=== PATIENT | male | born 1945 | race Two or more races ===

== ENCOUNTER 2018-08-29 07:23 | Inpatient (IN) | payer MEDICARE, OTHER ==
--- NOTE | 2018-08-29 07:36 | ED ---
Neurological HPI - HPI Summary HPI Summary: Pt is a 73 y/o male brought in by EMS who presents to the ED c/o left-sided weakness. As per EMS, his last known well was at 4:00 this morning. At 7:00 he was found with confusion and left-sided weakness, and pt was unable to stand up. Pt denies any headache. He lives with his grandson, who notes that he has been sleeping for the past few days and has not spoken much. Grandson also notes that pt fell both at 4:00 and 5:30 this morning. Pt is aphasic and is only able to answer simple yes or no questions. PMHx CAD, HTN, HLD. Dionne Bhakta was called at 6:55 as per EMS, but was then cancelled at 7:25. Pt is a level 5 caveat due to his AMS. - History of Current Complaint Stated Complaint: DIONNE JAEGER Hx Obtained From: Patient, EMS Hx From Patient Unobtainable Due To: Altered Mental Status Onset/Duration: Sudden Onset - 7:00 this morning, Started hours ago - Possibly several days ago., Still Present Neurological Deficit Location: Generalized, LUE, LLE Character: Weak, Confusion Aggravating: Nothing Alleviating: Nothing Associated Signs and Symptoms: Negative: Headache - Allergy/Home Medications Allergies/Adverse Reactions: Allergies Allergy/AdvReac Type Severity Reaction Status Date / Time No Known Allergies Allergy Verified 08/29/18 07:34 Home Medications: Home Medications Aspirin EC TAB* [Ecotrin EC Low Dose 81 MG*] 81 mg PO DAILY 08/29/18 [History Confirmed 08/29/18] Atenolol TAB* [Tenormin TAB* 50 MG] 100 mg PO DAILY 08/29/18 [History Confirmed 08/29/18] Dapagliflozin 10 mg Tab (Nf) [Farxiga] 10 mg PO DAILY 08/29/18 [History Confirmed 08/29/18] Ezetimibe TAB* [Zetia TAB*] 10 mg PO DAILY 08/29/18 [History Confirmed 08/29/18] Levothyroxine TAB* [Synthroid TAB*] 75 mcg PO DAILY 08/29/18 [History Confirmed 08/29/18] Lisinopril TAB* [Prinivil TAB*] 10 mg PO DAILY 08/29/18 [History Confirmed 08/29] Olmesartan/Amlodipin/Hcthiazid [Olmesartan Medoxomil/Amlo 40-10-25 mg] 1 tab PO DAILY 08/29/18 [History Confirmed 08/29/18] Simvastatin (NF) [Zocor (NF)] 80 mg PO BEDTIME 08/29/18 [History Confirmed 08/29] SitaGLIPtin (NF) [Januvia (NF)] 100 mg PO DAILY 08/29/18 [History Confirmed ] glyBURIDE TAB* [Diabeta TAB*] 5 mg PO QAM 08/29/18 [History Confirmed 08/29/18] metFORMIN* [Glucophage 500 MG TAB *] 1,000 mg PO BID 08/29/18 [History Confirmed 08/29/18] PMH/Surg Hx/FS Hx/Imm Hx Cardiovascular History: Reports: Hx Coronary Artery Disease, Hx Hypercholesterolemia, Hx Hypertension - Surgical History Surgery Procedure, Year, and Place: CABG - Family History Known Family History: Positive: Unknown - level 5 caveat - AMS - Social History Alcohol Use: None Hx Substance Use: No Substance Use Type: Reports: None Hx Tobacco Use: No Smoking Status (MU): Never Smoked Tobacco Review of Systems Neurological: Other - confusion Positive: Weakness - left-sided. Negative: Headache All Other Systems Reviewed And Are Negative: No Physical Exam - Summary Physical Exam Summary: Appearance: The patient is well-nourished in no acute distress and in no acute pain. Skin: The skin is warm and dry and skin color reflects adequate perfusion. HEENT: The head is normocephalic and atraumatic. The pupils are equal and reactive. The conjunctivae are clear and without drainage. Nares are patent and without drainage. Mouth reveals moist mucous membranes and the throat is without erythema and exudate. The external ears are intact. The ear canals are patent and without drainage. The tympanic membranes are intact. Neck: The neck is supple with full range of motion and non-tender. There are no carotid bruits. There is no neck vein distension. Respiratory: Chest is non-tender. Lungs are clear to auscultation and breath sounds are symmetrical and equal. Cardiovascular: Heart is regular rate and rhythm. There is no murmur or rub auscultated. There is no peripheral edema and pulses are symmetrical and equal. Abdomen: The abdomen is soft and non-tender. There are normal bowel sounds heard in all four quadrants and there is no organomegaly palpated. Musculoskeletal: There is no back tenderness noted. Extremities are non-tender with full range of motion. There is good capillary refill. There is no peripheral edema or calf tenderness elicited. Neurological: Patient is alert and oriented to time only. The patient has symmetrical motor strength in all four extremities. Cranial nerves are grossly intact. Deep tendon reflexes are symmetrical and equal in all four extremities. Aphasic but can answer yes and no questions. The patient is cooperative to the exam. Psychiatric: The patient has an appropriate affect and does not exhibit any anxiety or depression. Triage Information Reviewed: Yes Vital Signs Reviewed: Yes Completion Of Physical Exam Limited Due To: Level 5 - AMS - Grover Coma Scale Best Eye Response: 4 - Spontaneous Best Motor Response: 6 - Obeys Commands Best Verbal Response: 5 - Oriented Coma Scale Total: 15 Diagnostics - Laboratory Result Diagrams: 08/29/18 07:34 08/29/18 07:34 Lab Statement: Any lab studies that have been ordered have been reviewed, and results considered in the medical decision making process. 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 CONSIDER FURTHER EVALUATION WITH CT ANGIOGRAPHY OF THE CHEST. ED physician reviewed radiology report. - CT Brain CT CT Interpretation Completed By: Radiologist Summary of CT Findings: 1. Highly limited CT examination due to oblique positioning and motion artifact. 2. There is no CT apparent acute intracranial abnormality within the limitations of this low-quality CT of the brain. 3. Paranasal sinus mucosal disease. ED physician reviewed radiology report. 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-Paretic Hand: Both Correctly Best Gaze (Only Horizontal Eye Movement): Normal Visual Field Testing: No Visual Loss Facial Paresis-Pt to Smile & Close Eyes or Grimace Symmetry: Normal/Symmetrical Motor Function - Right Arm: No Drift-Holds 10 Seconds Motor Function - Left Arm: No Drift-Holds 10 Seconds Motor Function - Right Leg: No Drift-Holds 10 Seconds Motor Function - Left Leg: No Drift-Holds 10 Seconds Limb Ataxia-Must be out of Proportion to Weakness Present: Absent Sensory (Use Pinprick to Test Arms/Legs/Trunk/Face): Normal Best Language (Describe Picture, Name Items): Severe Aphasia Dysarthria (Read Several Words): Slurs Some Words Extinction and Inattention: No Abnormality Total Score: 3 Course/Dx - Course Course Of Treatment: Mr. Harry was brought in by EMS. They were called by his grandson who is 14 years old. This is a bit hazy but apparently has been sleeping a lot and possibly slurring his speech for the last couple of days and fell in the wee hours this morning. Ambulance found him to be confused and poorly responsive to verbal requests. He felt that he had a left-sided weakness. Dionne jaeger was called in the field and the patient was evaluated in the hallway on presentation. He was noted to have an expressive aphasia and possibly a partial receptive aphasia. He would follow some commands but not others and was easily distracted. I could not find any focal neurologic deficit. Because it appears as though it's been a couple of days since anyone interacted with him the dionne jaeger was canceled but he was sent for an immediate CT scan and labs were drawn. He will great deal of difficulty holding still for the CT scan and was given Ativan which only helped marginally. Dr. Awan was consult and came to the department to evaluate the patient. He requested MR scans. The patient needed to have conscious sedation for that so anesthesiology was contacted as was the hospitalist service for admission. - Diagnoses Provider Diagnoses: CVA (cerebral vascular accident) - Physician Notifications Discussed Care Of Patient With: Adam Awan Time Discussed With Above Provider: 09:27 Instructed by Provider To: Other - 1740 - Dr. Awan will come to the ED for a consult. 1040 - Dr. Awan has evaluated the patient, after discussing the patient's case with Dr. Bradley, the patient will be admitted, MRI and MRA to be done. 1105 - Patients case was discussed with Dr. Calderon, Dr. Calderon accepts for admission. - Critical Care Time Critical Care Time: 30-74 min - 30 minutes Discharge - Sign-Out/Discharge Documenting (check all that apply): Patient Departure - admit - Discharge Plan Condition: Good Disposition: ADMITTED TO [facility] - Billing Disposition and Condition Condition: GOOD Disposition: Admitted to [facility] - Attestation Statements Document Initiated by Mikeibe: Yes Documenting Scribe: Yana Allison Provider For Whom Scribe is Documenting (Include Credential): Antwon Bradley MD Scribe Attestation: Yana Mcdaniel, scribed for Antwon Bradley MD on 08/29/18 at 1711. Scribe Documentation Reviewed: Yes Provider Attestation: The documentation as recorded by the scribe, Yana Allison accurately reflects the service I personally performed and the decisions made by me, Antwon Bradley MD Status of Scribe Document: Viewed
[2018-08-29 07:48] LABS: ABS Basophils 0 10^3/ul (0-0.2); ABS Eosinophils 0 10^3/ul (0-0.6); ABS Lymphocytes 1.3 10^3/ul (1.0-4.8); ABS Monocytes 0.9 10^3/ul (0-0.8); ABS Neutrophils 10.2 10^3/ul (1.5-7.7); ABS Nucleated RBC 0 10^3/ul; Eosinophil % 0 %; Hematocrit 50 % (42-52); Hemoglobin 16.9 g/dl (14.0-18.0); Lymphocyte % 10.2 %; Mean Corpuscular HGB Conc 34 g/dl (31-36); Mean Corpuscular Hemoglobin 30 pg (27-31); Mean Corpuscular Volume 88 fL (80-94); Mean Platelet Volume 8.4 fL (7.4-10.4); Nucleated Red Blood Cells % 0.1; Platelet Count 231 10^3/ul (150-450); Red Blood Count 5.72 10^6/ul (4.00-5.40); Red Cell Distribution Width 14 % (10.5-15); White Blood Count 12.4 10^3/ul (3.5-10.8)
[2018-08-29 07:55] LABS: INR 1.11 (0.77-1.02)
[2018-08-29 08:02] LABS: ALT 20 U/L (7-52); AST 24 U/L (13-39); Albumin 4.5 g/dL (3.2-5.2); Albumin/Globulin Ratio 1.3 (1-3); Alkaline Phosphatase 87 U/L (34-104); Anion Gap 13 mmol/L (2-11); BUN/Creatinine Ratio 28.9 (8-20); Blood Urea Nitrogen 28 mg/dL (6-24); CO2 Carbon Dioxide 23 mmol/L (22-32); Calcium 10.1 mg/dL (8.6-10.3); Chloride 100 mmol/L (101-111); Creatine Kinase 428 U/L (10-223); EGFR African American 91.8 (>60); EGFR Non-African American 75.9 (>60); Globulin 3.5 g/dL (2-4); Glucose 295 mg/dL (70-100); Magnesium 2.1 mg/dL (1.9-2.7); Sodium 136 mmol/L (135-145)
[2018-08-29 08:03] LABS: Troponin I 0.02 ng/mL (<0.04)
[2018-08-29] MEDS ORDERED: LORazepam INJ* 2 MG/ML 1 ML VIAL IV ONE ×3 (08:21→11:38)
[2018-08-29] MEDS ORDERED: NS 0.9% 1000 ML** 1,000 ML IV ONE (08:21)
[2018-08-29 08:34] LABS: TSH (Thyroid Stimulating Horm) 2.38 mcIU/mL (0.34-5.60)
[2018-08-29 10:09] LABS: Acetaminophen < 15 mcg/mL; Alcohol < 10 mg/dL (<10)
[2018-08-29] MEDS ORDERED: Albuterol/Ipratropium NEB.SOL* Albuterol 2.5 MG/Ipratropium 0.5 MG 3 ML INH ONE (12:27)
--- NOTE | 2018-08-29 12:39 | CONS ---
CONSULTATION REPORT: DATE OF CONSULT: 08/29/18 PATIENT OF: Dr. Bradley and Jackie Salguero NP. HISTORY OF PRESENT ILLNESS: This is a 73-year-old man who is unable to provide any history due to aphasia. Apparently, his symptoms began relatively acutely in the past 2 to 3 days. He lives with his 14-year-old grandson, who noted to the EMS that the patient had been sleeping for the past few days' time and has not spoken much. This morning, he fell couple of times and had some confusion. It is unclear whether his grandson noticed the left-sided weakness or whether it was the EMS, but he was brought in by ambulance earlier this morning. He is unable to give history himself, but he has history of hypertension, hypercholesterolemia, obesity, diabetes, and coronary artery disease. He is status post a CABG. He never smoked tobacco. He has no history of substance abuse, but it is unclear how that was obtained. MEDICATIONS: Include: 1. Metformin possibly 500 mg twice a day. 2. Simvastatin 10 mg daily. 3. Tribenzor 1 tablet daily. 4. Synthroid 100 mcg daily. 5. Zetia 10 mg daily. 6. Farxiga 5 mg daily. 7. Atenolol 25 mg daily. ALLERGIES: He has no known allergies, but that will need to be confirmed. REVIEW OF SYSTEMS: Unobtainable. There is no recent history in the chart. There is a history from February 2016, but just saying that he is getting colonoscopy. PHYSICAL EXAM: Vital Signs: Blood pressure 144/101, oxygen sat 93, pulse 101, respirations 27, temperature 98.1. Neurologic: He was alert. He said his name. He could say some 2-word phrases, but could not answer questions in a meaningful way. He could not name objects. When I asked him to touch his nose , he raised his hands and was unable to cooperate with the exam. He was not agitated. On cranial nerves, there is no clear visual field cut to threat, but the exam is difficult. He did not cooperate with exam at all, but had full extraocular movements when he regarded my face. There is a red reflex present in both eyes. Pupils were equal, round, and reactive to light. He had no clear facial asymmetry, but I could not fully assess this. His voice was not slurred. He moved all extremities with power at least 4+/5, but he did not cooperate with things such as pronator drift or formal strength testing. Reflexes were 1 and equal. Toes were equivocal to downgoing. Chest: Clear. Cardiovascular: Regular rate and rhythm. Abdomen: Soft with positive bowel sounds. DIAGNOSTIC STUDIES/LAB DATA: He had a CT scan which was limited because of movement artifact. He had a chest x-ray with a tortuous aorta, but no dilatation. He had normal sinus rhythm with right bundle-branch block. His labs include white count 12.4, CBC otherwise normal. INR 1.1. Chemistry: He had a BUN of 28, creatinine 0.97, lactic acid 2.2, glucose 295, CPK of 428. TSH 4.28. Toxicology negative for alcohol or Tylenol. IMPRESSION: Mr. Harry appears alert and interactive, but my sense is that he has a dense aphasia, but has no clear-cut motor deficits or visual field cut that I can detect, although this may be limited by exam. The differential would be most likely a subacute stroke beginning 3 days ago when he took to his bed and did not speak much, according to the 14-year-old grandson. It is possible that something like herpes encephalitis could be going on, but I think this is much less likely. There is no fever and the symptoms have been present for 3 days' time. We are going to sedate him and get an MRI with and without contrast as well as an MRA of the head and neck. The MRA of the neck will be with and without contrast. We will see what these findings show. He could also be having subclinical seizures complicating this and we will be checking an EEG. We will be doing this in the near future and workup will proceed from the findings on these studies. He will clearly need to be admitted. Thank you for sharing his case. [id number]/[facility] #: [id number] LILO
[2018-08-29] MEDS ORDERED: Propofol* 1,000 MG/100 ML BTL ONE (12:48)
[2018-08-29] MEDS ORDERED: Succinylcholine* 20 MG/ML 10 ML VIAL ONE (12:48)
[2018-08-29] MEDS ORDERED: KETAMINE HCL* 50 MG/ML 10 ML VIAL ONE ×2 (12:49→16:55)
[2018-08-29] MEDS ORDERED: Midazolam* 1 MG/ML 2 ML VIAL (2 MG) ONE ×2 (13:14→13:16)
[2018-08-29] MEDS ORDERED: Gadobenate* (CONTRAST) 529 MG/ML 10 ML SDV IV ONE (15:16)
[2018-08-29] MEDS ORDERED: Naloxone* 0.4 MG/ML 1 ML VIAL IV PRN (15:33)
[2018-08-29 16:19] LABS: Urine Appearance Cloudy; Urine Bacteria Absent (Absent); Urine Bilirubin Negative (Negative); Urine Blood 1+ (Negative); Urine Color Yellow; Urine Glucose 3+(>=500 mg/dL) (Negative); Urine Ketones 1+ (Negative); Urine Nitrite Negative (Negative); Urine Protein 2+(100 mg/dL) (Negative); Urine Red Blood Cell 1+(3-5/hpf) (Absent); Urine Specific Gravity 1.038 (1.010-1.030); Urine Urobilinogen Negative (Negative); Urine White Blood Cell Absent (Absent)
[2018-08-29] MEDS ORDERED: NS 0.9% 1000 ML** 1,000 ML IV SCH (16:30)
[2018-08-29] MEDS ORDERED: Dextrose 50% Syringe 50 ML* 25 GM/50 ML SYRINGE IV PUSH PRN (16:30)
[2018-08-29 16:35] LABS: Barbiturates Urine Screen None Detected (None Detect); Benzodiazepine Urine Screen Presumptive Positive (None Detect); Urine Cannabinoids Screen None Detected (None Detect)
[2018-08-29] MEDS ORDERED: fentaNYL* 50 MCG/ML 2 ML VIAL (100 MCG VIAL) ONE (16:55)
[2018-08-29] MEDS ORDERED: Midazolam* 1 MG/ML 5 ML VIAL (5 MG) ONE (16:56)
[2018-08-29 17:49] LABS: Body Fluid Source Cerebral Spinal
[2018-08-29 18:02] LABS: CSF Glucose 150 mg/dL (40-70)
[2018-08-29 18:17] LABS: Body Fluid Band 1 %; Body Fluid Mono 35 %
[2018-08-29] MEDS ORDERED: QUEtiapine TAB* 25 MG PO PRN (18:53)
[2018-08-29] MEDS ORDERED: LORazepam INJ* 2 MG/ML 1 ML VIAL IV PUSH PRN (18:53)
--- NOTE | 2018-08-29 19:29 | HP ---
CC: Dr. Anthony; Dr. Awan * HISTORY AND PHYSICAL: DATE OF ADMISSION: 08/29/18 PROVIDER: Reena Velez NP PRIMARY CARE PROVIDER: Natalie Anthony MD ATTENDING PHYSICIAN WHILE IN THE HOSPITAL: Dr. Ernestina Calderon * (dictated by Reena Velez NP). CHIEF COMPLAINT: Altered mental status. HISTORY OF PRESENT ILLNESS: This was obtained from his EMS report and ER report as the patient has significant altered mental status. According to the ER report, Mr. Harry is a 73-year-old male patient who was brought in by EMS and the initial complaint was left-sided weakness. Per EMS, the patient was last normal at 4 this morning. At 7, he was found with confusion, left- sided weakness, unable to stand up. 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 Grandson reports that the patient had been sleeping more over the past few days and has not spoken much. Grandson noted that the patient fell at 4 a.m., and at 5:30 this morning, on arrival to the emergency room, the patient was aphasic, only able to answer yes or no questions. Mane freeman was called and was canceled at 7:25. The patient carries a past medical history significant according to his medical records from his primary care provider of hypertension, hypothyroid, morbid obesity, type 2 diabetes, high cholesterol, atherosclerosis of the coronary arteries, bypass graft . The patient was seen by Neurology in the emergency room. MRI and MRAs were ordered as well as CT of the brain, which did not show any acute stroke or hemorrhage. Due to his profound aphasia and altered mental status, we were asked to see and evaluate him for admission. PAST MEDICAL HISTORY: Significant for: obtained from PCP medical records 1. Hypertension. 2. CAD. 3. Diabetes, type 2. 4. High cholesterol. PAST SURGICAL HISTORY: obtained from PCP medical records 1. CABG x4 vessels in 2002. 2. Cardiac catheterization with 2 stent placements in 2008. This was obtained from PCP medical records. HOME MEDICATIONS: 1. Lisinopril 10 mg p.o. daily. 2. Glyburide 5 mg p.o. daily. 3. Synthroid 75 mcg p.o. daily. 4. Farxiga 10 mg p.o. daily. 5. Zetia 10 mg p.o. daily. 6. Simvastatin 80 mg p.o. daily. 7. Tribenzor 40/10/25 p.o. daily. 8. Atenolol 100 mg p.o. daily. 9. Aspirin 81 mg p.o. daily. 10. Janumet 11/999 mg daily. 11. Furosemide 20 mg daily. ALLERGIES: According to his medical records from his primary care office from 08/11/18, no known drug allergies. FAMILY HISTORY: Unknown. SOCIAL HISTORY: According to his old records, the patient was a prior smoker. He quit in July 1995. Prior to that, he smoked 2 packs a day for approximately 30 years. 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 He lives with his 14 y.o grandson. Next of kin is his son, Aroldo. Code status is a full code at this point. REVIEW OF SYSTEMS: Unobtainable as the patient is aphasic and unable to follow commands or make needs known. He does state yes and no, but answers are irrelevant to questions. PHYSICAL EXAMINATION GENERAL: At this time, Mr. Harry is a 73-year-old male. He is aphasic. He opens his eyes to verbal stimulation. He is lying on the stretcher in the emergency room. He restless on the stretcher. VITAL SIGNS: Blood pressure 153/99, heart rate 92, respirations 22, O2 saturation 97%, temperature was 98.5. HEENT: Head is atraumatic, normocephalic. Eyes: EOMs are intact. Sclerae anicteric and not pale. Oral mucosa appeared to be moist. There is no oropharyngeal erythema. NECK: Supple. C-spine was palpated with no grimacing noted with palpation. LUNGS: Clear to auscultation bilaterally. No wheezes, rales, or rhonchi. CARDIAC: S1, S2. Regular rate and rhythm. No murmurs, rubs, or gallops. ABDOMEN: Obese, soft, appears to be nontender, there is no grimacing with palpation to the abdomen. Bowel sounds are present x4. EXTREMITIES: He is able to move all 4 extremities. NEUROLOGIC: He opens eyes to verbal. He is unable to follow commands. He is aphasic. He can state 1 word phrases. Speech is clear with yes and no answers , which do not correlate to questions. There is no gross facial asymmetry noted. Unable to complete a full exam as the patient does not follow commands. SKIN: Intact. DIAGNOSTIC STUDIES AND LABORATORY DATA: WBCs are 12.4, RBCs 5.72, hemoglobin 16.9, hematocrit is 50, platelet count 231. INR was 1.11. Sodium 136, potassium 4.0, chloride 100, carbon dioxide was 23, anion gap was 13, BUN was 28 , creatinine 0.97, glucose was 295. Lactic acid was 2.2, calcium 10.1, magnesium 2.1. Total bili was 1.20, ASTs were 24, ALTs were 20, alkaline phosphatase was 87. Ammonia was 41. Total CK was 428. Troponin was 0.02. TSH was 238. Acetaminophen and alcohol levels were negative. He had an EKG which showed right bundle-branch block at a rate of 96 with sinus rhythm. He had a CT of the brain, radiologist's impression: Highly limited CT examination due to oblique positioning and motion artifact. There is no CT apparent acute intracranial abnormality within limitations of this low quality CT brain. Parasinus mucosal disease. He had a chest x-ray, radiologist's impression: Tortuous aorta with widening of the upper mediastinum, progressed when compared to chest x-ray of 10/16/08. Consider further evaluation with CT angiography of the chest. He had an MRI of the brain, radiologist's impression: No restricted diffusion to suggest acute infarct, moderate sinus mucosal inflammatory disease with air fluid levels in the right maxillary sinus. He had an MRA of the head. Again, the study was limited. There is no appreciable aneurysm, vascular malformation, occlusion, or stenosis of the visualized intracranial circulation. He had an MRI of the neck, radiologist's impression: Limited study, 50% short- segment in the left internal carotid artery stenosis, no right internal carotid artery stenosis. He had an abdominal x-ray, bowel gas patterns are unremarkable. ASSESSMENT AND PLAN: Mr. Harry is a 73-year-old male who presented to the emergency room via EMS for altered mental status. He is aphasic. Due to his aphasia and altered mental status, we were asked to see and evaluate him for admission. 1. Altered mental status. It is unclear at this time the cause of his aphasia- -the differential is broad and includes infectious, ischemic stroke, metabolic encephalopathy , but at this time there is not a clear explanation. Clinical suspicion at this time is CVA or encephalitis. The patient is currently being worked up for cerebrovascular accident. He did have a MRI, MRA of the head and neck as well as an MRI of the brain which did not show any acute infarct. We will get an LP and I will arrange this with anesthesia. I have discussed these results with Dr. Awan who is recommending getting an LP and sending CSF for lab studies. We will also get an EEG. He will be placed in ICU. He will be monitored on telemetry. We will get neuro checks q.2 hours. I will get an echo with bubble study. Lipid profile. 2. History of coronary artery disease. At this time, I am going to hold his simvastatin and furosemide as his mental status is to altered to take oral medications. 3. Hypertension. I will give him hydralazine p.r.n. as needed for systolic blood pressure greater than 180. 4. Diabetes. I will place him on Accu-Cheks q.6 hours and sliding scale lispro. I will hold his Janumet. 5. Hypothyroid. I will give him his Synthroid IV. 6. FEN. He will be n.p.o. 7. Code status. He is a full code. 8. DVT prophylaxis. I will place him on Lovenox subcu. TIME SPENT: Time spent on this admission was 90 minutes, greater than half the time was spent reviewing records of events leading thus far to this hospitalization and contacting speciality providers and implementing my plan of care. I have discussed this with my attending, Dr. Enrestina Calderon; she is in agreement with my plan. REENA VELEZ, LINE FIXER [id number]/[facility] #: [id number] LILO
[2018-08-29] MEDS: Insulin LISPRO* 1 UNITS UNIT SUBCUT SCH ×2 (19:42→23:48)
[2018-08-29] MEDS: Enoxaparin(*) 40 MG/0.4 ML SYR SUBCUT SCH (19:43)
[2018-08-29] MEDS ORDERED: Clopidogrel TAB* 75 MG SCH (22:00)
[2018-08-29] MEDS ORDERED: Aspirin 81 mg CHEW TAB* 81 MG TAB.CHEW NG TUBE SCH (22:00)
[2018-08-29] MEDS ORDERED: Aspirin EC TAB* 81 MG TAB.EC PO SCH (22:00)
[2018-08-29] MEDS: LORazepam INJ* 2 MG/ML 1 ML VIAL IV PUSH PRN (22:57)
[2018-08-29] MEDS: NS 0.9% IVPB SCH (23:48)
[2018-08-29] MEDS: ACYCLOVIR IVPB SCH (23:48)
[2018-08-30] MEDS ORDERED: Aspirin SUPP* 300 MG PR ONE (00:29)
[2018-08-30] MEDS: Ampicillin ADVAN(*) 2 GM in NS 0.9% 100 ML* 100 ML IVPB SCH ×6 (01:35→21:22)
[2018-08-30] MEDS: LORazepam INJ* 2 MG/ML 1 ML VIAL IV PUSH PRN ×4 (03:08→21:49)
[2018-08-30] MEDS: Levothyroxine INJ* 100 MCG/5 ML VIAL IV SCH (05:46)
[2018-08-30] MEDS: Insulin LISPRO* 1 UNITS UNIT SUBCUT SCH ×5 (05:46→23:34)
[2018-08-30 06:09] LABS: Hematocrit 49 % (42-52); Hemoglobin 16.4 g/dl (14.0-18.0); Mean Corpuscular HGB Conc 33 g/dl (31-36); Mean Corpuscular Hemoglobin 29 pg (27-31); Mean Corpuscular Volume 87 fL (80-94); Mean Platelet Volume 8.2 fL (7.4-10.4); Platelet Count 196 10^3/ul (150-450); Red Blood Count 5.62 10^6/ul (4.00-5.40); Red Cell Distribution Width 14 % (10.5-15)
[2018-08-30 06:17] LABS: INR 1.03 (0.77-1.02)
[2018-08-30 06:26] LABS: BUN/Creatinine Ratio 27.1 (8-20); Calcium 9.4 mg/dL (8.6-10.3); EGFR African American 73.2 (>60); EGFR Non-African American 60.5 (>60); Potassium 3.6 mmol/L (3.5-5.0)
[2018-08-30 06:29] LABS: ABS Basophils 0.1 10^3/ul (0-0.2); ABS Eosinophils 0.1 10^3/ul (0-0.6); ABS Lymphocytes 1.9 10^3/ul (1.0-4.8); ABS Monocytes 1.8 10^3/ul (0-0.8); ABS Neutrophils 12.2 10^3/ul (1.5-7.7); ABS Nucleated RBC 0 10^3/ul; Eosinophil % 0.4 %; Lymphocyte % 11.9 %; Nucleated Red Blood Cells % 0.1
[2018-08-30] MEDS ORDERED: Perflutren Lipid Microsphere* 3 ML VIAL ONE (07:50)
[2018-08-30] MEDS: hydrALAZINE IV* 20 MG/ML VIAL IV SLOW PU PRN ×2 (08:06→14:39)
--- NOTE | 2018-08-30 08:33 | PN ---
Subjective Date of Service: 08/30/18 Interval History: Pt is unable to tell me how he feels. Nursing notes the patient will wake up when you call his name and answer minimal yes/no questions but they question how reliable his answers are. He was able to state how many fingers the nurse was holding up but when she tried again he was unable to. Objective Active Medications: Dextrose (D50w Syringe 50 Ml*) 12.5 gm IV PUSH .FOR FS < 60 - SS PRN PRN Reason: FS < 60 Enoxaparin Sodium (Lovenox(*)) 40 mg SUBCUT Q24H [facility] Last Admin: 08/29/18 19:43 Dose: 40 mg Hydralazine HCl (Apresoline Iv*) 5 mg IV SLOW PU Q6H PRN PRN Reason: Systolic Bp Greater Than:190 Last Admin: 08/30/18 08:06 Dose: 5 mg Ampicillin Sodium 2 gm/ Sodium (Chloride) 100 mls @ 200 mls/hr IVPB Q4HR [facility] Last Admin: 08/30/18 05:09 Dose: 200 mls/hr Acyclovir Sodium 900 mg/ (Sodium Chloride) 268 mls @ 268 mls/hr IVPB Q8H [facility] Last Admin: 08/29/18 23:48 Dose: 268 mls/hr Insulin Human Lispro (Humalog*) 0 units SUBCUT Q6HR [facility]; Protocol Last Admin: 08/30/18 06:53 Dose: Not Given Levothyroxine Sodium (Synthroid Inj*) 37.5 mcg IV 0600 [facility] Last Admin: 08/30/18 05:46 Dose: 37.5 mcg Lorazepam (Ativan Inj*) 2 mg IV PUSH Q4H PRN PRN Reason: ANXIETY Last Admin: 08/30/18 03:08 Dose: 2 mg Quetiapine Fumarate (Seroquel Tab*) 25 mg PO QPM PRN PRN Reason: AGITATION Vital Signs - 8 hr 08/30/18 08/30/18 08/30/18 00:31 01:00 01:01 Temperature Pulse Rate 101 99 104 Respiratory 20 19 13 Rate Blood Pressure 104/69 167/103 (mmHg) O2 Sat by Pulse 92 93 95 Oximetry 08/30/18 08/30/18 08/30/18 01:31 02:00 02:01 Temperature Pulse Rate 105 113 108 Respiratory 20 20 23 Rate Blood Pressure 160/98 (mmHg) O2 Sat by Pulse 94 94 93 Oximetry 08/30/18 08/30/18 08/30/18 02:04 02:31 02:55 Temperature Pulse Rate 117 114 Respiratory 24 25 23 Rate Blood Pressure 143/108 139/84 (mmHg) O2 Sat by Pulse 92 95 Oximetry 08/30/18 08/30/18 08/30/18 03:01 03:08 03:31 Temperature Pulse Rate 109 114 Respiratory 25 24 21 Rate Blood Pressure 169/105 (mmHg) O2 Sat by Pulse 94 94 Oximetry 08/30/18 08/30/18 08/30/18 04:00 04:01 04:30 Temperature 97.9 F Pulse Rate 98 100 96 Respiratory 19 29 25 Rate Blood Pressure 157/103 161/97 (mmHg) O2 Sat by Pulse 95 95 94 Oximetry 08/30/18 08/30/18 08/30/18 05:00 05:01 05:02 Temperature Pulse Rate 111 110 Respiratory 21 15 Rate Blood Pressure 188/118 (mmHg) O2 Sat by Pulse 95 95 95 Oximetry 08/30/18 08/30/18 08/30/18 05:07 05:30 05:49 Temperature Pulse Rate 102 118 Respiratory 19 15 17 Rate Blood Pressure 165/103 192/175 (mmHg) O2 Sat by Pulse 96 92 Oximetry 08/30/18 08/30/18 06:00 06:01 Temperature Pulse Rate 116 115 Respiratory 23 23 Rate Blood Pressure 151/75 (mmHg) O2 Sat by Pulse 93 92 Oximetry Oxygen Devices in Use Now: Nasal Cannula - 2L-95% Appearance: Elderly morbidly obese male lying flat in bed, awakes to calling his name but otherwise sleeps, NAD Eyes: No Scleral Icterus Ears/Nose/Mouth/Throat: Mucous Membranes Moist Respiratory: Symmetrical Chest Expansion and Respiratory Effort, Clear to Auscultation - anteriorly Cardiovascular: NL Sounds; No Murmurs; No JVD, No Edema, - - tachycardic but regular Abdominal: NL Sounds; No Tenderness; No Distention - obese Extremities: No Clubbing, Cyanosis Skin: No Nodules or Sclerosis Neurological: - - unable to carry on coversation, wakes up and appears to be blankly starring, promptly falls back asleep Result Diagrams: 08/30/18 05:57 08/30/18 05:57 Microbiology and Other Data: Microbiology 08/29/18 17:40 CSF Gram Stain (Tube 3) - Final Cerebral Spinal Fluid 08/29/18 19:50 Nasal Screen MRSA (PCR) - Final Nasal Mrsa Not Detected Assess/Plan/Problems-Billing Mr Harry is a 73 yo M who has a h/o DM, HTN, morbid obesity and CAD who presented to the ER after he was noted to fall a couple times but was also aphasic and subsequently found to be weak on the left. - Patient Problems (1) Altered mental status Current Visit: Yes Status: Acute Code(s): R41.82 - ALTERED MENTAL STATUS, UNSPECIFIED SNOMED Code(s): 318228737 Comment: The patient is lethargic but arousable. Unable to speak more than a couple words. DDx includes CVA (but likely ruled out with negative MRI), ? viral meningitis/encephalitis (16 WBC in CSF with high protein level), non convulsive status-EEG pending for today. No clear signs of bacterial infection at this time though he has a large, grapefruit sized soft mass/fluid collection on the L posterior upper arm that is warm to touch, his WBC count is elevated, planning on US this am to better asses. Urine looks like the patient is dry but no signs of UTI. Will disucss CSF results with Dr. Lin. Await EEG report. Continue neurochecks. Continue ampicillin and acyclovir for now. (2) Aphasia Current Visit: Yes Status: Acute Code(s): R47.01 - APHASIA SNOMED Code(s) : 48150908 Comment: Unclear cause at this time. He was able to speak a couple words to me this am. CVA was high on the differential though MRI was negative. Will continue to monitor for changes. (3) Elevated serum creatinine Current Visit: Yes Status: Acute Code(s): R79.89 - OTHER SPECIFIED ABNORMAL FINDINGS OF BLOOD CHEMISTRY SNOMED Code(s): 741187102 Comment: Creatinine is up today from prior, will increase NS to 125ml/hr and recheck labs in AM. (4) HTN (hypertension) Current Visit: Yes Status: Acute Code(s): I10 - ESSENTIAL (PRIMARY) HYPERTENSION SNOMED Code(s): 86889432 Comment: BP has been quite elevated but he has not had his usual home meds as he can not safely take them in by mouth. Will start metoprolol 5mg IV q6hr for BP and HR control. (5) Type II diabetes mellitus Current Visit: Yes Status: Acute Comment: Sugars are moderately elevated. Will start lantus 5 units daily and continue with lispro sliding scale q6hr. (6) CAD (coronary artery disease) Current Visit: Yes Status: Acute Code(s): I25.10 - ATHSCL HEART DISEASE OF [place] CORONARY ARTERY W/O ANG PCTRS SNOMED Code(s): 66080987 Comment: No c/o chest pain at this time. He received rectal ASA last evening. His last stents were several years ago. Start metoprolol as above. (7) DVT prophylaxis Current Visit: Yes Status: Acute Code(s): AOH9388 - SNOMED Code(s): 202760515 Comment: bonifacio (8) Full code status Current Visit: Yes Status: Acute Code(s): Z78.9 - OTHER SPECIFIED HEALTH STATUS SNOMED Code(s): 187550203
[2018-08-30] MEDS: NS 0.9% IVPB SCH ×3 (09:13→23:15)
[2018-08-30] MEDS: Metoprolol Tartrate IV* 1 MG/ML 5 ML VIAL IV SCH ×3 (09:13→21:22)
[2018-08-30] MEDS: ACYCLOVIR IVPB SCH ×3 (09:13→23:15)
[2018-08-30] MEDS: Insulin GLARGINE(*) 1 UNITS UNIT SUBCUT SCH (09:13)
[2018-08-30 12:50] LABS: Influenza A Molecular NEGATIVE (Negative); Influenza B Molecular NEGATIVE (Negative)
[2018-08-30] MEDS: NS 0.9% 1000 ML** 1,000 ML IV SCH (13:31)
--- NOTE | 2018-08-30 16:47 | EEG ---
ELECTROENCEPHALOGRAPHY: DATE OF STUDY: - ROOM #ICU-08 DATE OF DICTATION: 08/30/18 PATIENT OF: Reena Velez NP HISTORY: This is a 73-year-old man being evaluated for encephalopathy and aphasia with an abnormal CSF. MEDICATIONS: Include: 1. Atenolol. 2. Farxiga 3. Zetia. 4. Synthroid. 5. Tribenzor. 6. Simvastatin. 7. Metformin. INTERPRETATION: With the patient awake, background cerebral activity consists of moderate amplitude diffuse 6 to 7 Hz rhythm, with some admixed delta activity , some of the faster theta activity at times is better seen on the left than the right, but this is an inconsistent finding. No epileptiform potentials are noted. EEG artifact is noted at times. IMPRESSION: This EEG is abnormal because of diffuse slowing of background consistent with an encephalopathy, nonspecific ST etiology. No epileptiform potential is noted. There is some minor asymmetry of background as described above. [id number]/[facility] #: [id number] [facility]
--- NOTE | 2018-08-30 16:58 | ECHO ---
Patient: JARRELL BE [facility] Rec#: [id number] : 1945 Date: 08/30/2018 Age: 73y Height: 168 cm / 66.1 in Weight: 144 kg / 317.4 lbs Sex: M BSA: 2.44 Room#: [facility]8 Admit Date#: 08/29/2018 Type: Inpatient Referring: Reena Velez Reading: Estelita Rizvi MD CC: Adam Awan MD Transthoracic Echocardiogram Indication: CVA BP: 151/75 HR: 128 Rhythm: Tachycardia Findings Technical Comments: The study is technically difficult. Completed at 0845. Definity used to enhance images. The study is technically limited due to poor acoustic windows. The study is technically limited due to patient body habitus. The study was technically limited due to the patient's inability to lay in the left lateral decubitus position. Left Ventricle: The left ventricular chamber size is normal. Moderate concentric left ventricular hypertrophy is observed. Left ventricular systolic function is at the lower limits of normal. The estimated ejection fraction is 50-55%. The assessment of diastolic function is non-diagnostic. Mitral inflow pattern appeared fused. Left Atrium: The left atrium is moderately dilated. Right Ventricle: The right ventricle is not well visualized. The right ventricular global systolic function is normal. based on parasternal views. Right Atrium: The right atrium is not well visualized. A patent foramen ovale is not demonstrated with color Doppler and agitated contrast. Apical window is limited due to body habitus. Aortic Valve: The aortic valve is trileaflet. There is no evidence of aortic regurgitation. There is no evidence of aortic stenosis. Mitral Valve: The mitral valve leaflets are mildly thickened. There is no evidence of mitral regurgitation. There is no evidence of mitral stenosis. Tricuspid Valve: The tricuspid valve structure is not well visualized. Pulmonic Valve: The pulmonic valve appears normal. There is no evidence of pulmonic regurgitation. There is no pulmonic stenosis. Pericardium: A pericardial fat pad is visualized. Aorta: There is mild dilatation of the ascending aorta. The aortic arch is not well visualized. There is no dilation of the aortic root. Pulmonary Artery: The main pulmonary artery appears normal. Venous: The venous system appears normal. Contrast: Definity was used to optimize study. A total of 5 ml used. Intravenous contrast was used to enhance endocardial border definition. Intravenous agitated saline contrast was used to assess intracardiac shunting. Conclusions The study is technically limited due to patient body habitus. Moderate concentric left ventricular hypertrophy is observed. EF 50-55%. The assessment of diastolic function is non-diagnostic. The left atrium is moderately dilated. No evidence of a patent foramen ovale with color Doppler and agitated contrast, imaging suboptimal for this. All valve show grossly normal function. No prior echo to compare. If clinically indicated consider NAUN (transesophogeal echo) for improved imaging and evaluationi for possible cardioembolic source. There is mild dilatation of the ascending aorta: 3.6 cm. Measurements Name Value Normal Range RVIDd (AP) 2D 3.2 cm (0.9 - 2.6) IVSd (2D) 1.6 cm (0.6 - 1) LVPWd (2D) 1.3 cm (0.6 - 1) LVIDd (2D) 3.9 cm (3.6 - 5.4) LVIDs (2D) 3.5 cm - Aortic Annulus 2.1 cm (1.4 - 2.6) Ao root diameter (2D) 3.2 cm (2.1 - 3.5) Ascending Ao 3.6 cm (2.1 - 3.4) LA dimension (AP) 2D 4.9 cm (2.3 - 3.8) Name Value Normal Range MV E-wave Vmax 0.8 m/sec - MV deceleration time 150 msec - MV A-wave Vmax 1.3 m/sec - MV E:A ratio 0.6 ratio - LV septal e' Vmax 0.16 m/sec - LV lateral e' Vmax 0.2 m/sec - LV E:e' septal ratio 5 ratio - LV E:e' lateral ratio 4 ratio - Name Value Normal Range AV Vmax 1.3 m/sec - AV VTI 20.2 cm - AV peak gradient 7 mmHg - AV mean gradient 3 mmHg - LVOT Vmax 0.8 m/sec - LVOT VTI 15.8 cm - LVOT peak gradient 4 mmHg - LVOT mean gradient 2 mmHg - Name Value Normal Range PV Vmax 1.1 m/sec -
--- NOTE | 2018-08-30 17:03 | PN ---
NEUROLOGICAL FOLLOWUP: DATE OF CONSULT: 08/30/18 PATIENT OF: Dr. Clarke. HISTORY: This is a 73-year-old man who remains encephalopathic and aphasic. He is unable to give any further history. Of note, I spoke to his son yesterday prior to the spinal tap and explained in detail the concerns about stroke versus infection and he agreed to having spinal tap done. He did not provide any additional medical information regarding the patient that we did not know already. MEDICATIONS: Boaz's medications now include: 1. Acyclovir. 2. Ampicillin. 3. Lovenox subcu. 4. Hydralazine 5 mg IV p.r.n. elevated blood pressure. 5. Insulin 5 units subcu 24 hours. 6. Synthroid 37.5 mcg daily. 7. Lopressor 5 mg IV q.6 hours. REVIEW OF SYSTEMS: Unable to be obtained. PHYSICAL EXAM: Temperature 97, pulse 102, respirations 25, blood pressure 134/ 85. He was alert. He could answer to his name. He has spoken more words today. He said it is Boaz rather than just Boaz and he seemed to be a little bit more fluent in terms of saying a couple words more frequently. However, he did not say that he was in the hospital, or the year, and he did not follow commands. He moved all extremities with power but was not cooperative directly with the exam. Reflexes were 1. Toes were equivocal. Chest: Clear. Cardiovascular: Regular rate and rhythm. Abdomen: Soft with positive bowel sounds. DIAGNOSTIC STUDIES/LAB DATA: His MRI scan yesterday showed no acute findings. No evidence of stroke. He had air fluid level on his right maxillary sinus. His MRA of his head and neck was limited but did show 50% stenosis of the left internal carotid artery. He had gone ahead and done a spinal tap afterwards since there is not clearly stroke documented on MRI scan. I have obtained informed consent from the son and the CSF results was rbc 0, white blood cell count was 16 with majority of the lymphs and monos, total protein was 53. Additional studies including cryptococcal antigen, herpes PCR are pending. There is extra fluid saved. I discussed with Reena Velez the last night when it came back that we would have him on acyclovir and ampicillin to cover the possibility of Listeria, although this would be unlikely. It is possible that this could be herpes and I discussed that with the son prior to the spinal tap. I have asked for an infectious disease consult to be obtained to see if there needed to be additional antibiotics placed and if there is any further testing needed on the CSF. His UA had 3+ glucose, 1+ ketones, specific gravity of 1.038, BUN 32, creatinine 1.18, glucose of 200. Blood gas had a pO2 of 83. CBC is 16 today with platelets of 196, hematocrit 49. His EEG showed diffuse slowing, there was some minor asymmetry seen but no epileptiform potentials. IMPRESSION: Boaz remains encephalopathic and aphasic but he seems slightly more verbal than yesterday. Clearly, he is not worse than he was yesterday. 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 I will touch base with Dr. Clarke now to make sure ID has been contacted here. If Dr. Lin is not available, we would need an ID phone consult from either [place] or [place]. He has had no apparent seizures and his EEG was consistent with an encephalopathy but did not show seizures at this time. [id number]/[facility] #: [id number] [facility]
[2018-08-30] MEDS: Dexmedetomidine* 400 MCG in NS 0.9% 100 ML* 96 ML IVPB SCH ×2 (17:16→21:43)
[2018-08-30] MEDS: Enoxaparin(*) 40 MG/0.4 ML SYR SUBCUT SCH (17:30)
[2018-08-31] MEDS: NS 0.9% 1000 ML** 1,000 ML IV SCH ×2 (01:18→13:47)
[2018-08-31] MEDS: DEXMEDETOMIDINE IVPB SCH ×4 (01:24→19:48)
[2018-08-31] MEDS: NS 0.9% IVPB SCH ×7 (01:24→23:34)
[2018-08-31] MEDS: Ampicillin ADVAN(*) 2 GM in NS 0.9% 100 ML* 100 ML IVPB SCH ×2 (02:19→06:45)
[2018-08-31] MEDS: Metoprolol Tartrate IV* 1 MG/ML 5 ML VIAL IV SCH ×4 (03:05→20:23)
[2018-08-31 05:20] LABS: Hematocrit 45 % (42-52); Hemoglobin 15.2 g/dl (14.0-18.0); Mean Corpuscular HGB Conc 34 g/dl (31-36); Mean Corpuscular Hemoglobin 30 pg (27-31); Mean Corpuscular Volume 88 fL (80-94); Mean Platelet Volume 8.1 fL (7.4-10.4); Platelet Count 152 10^3/ul (150-450); Red Cell Distribution Width 14 % (10.5-15); White Blood Count 7.4 10^3/ul (3.5-10.8)
[2018-08-31 05:40] LABS: BUN/Creatinine Ratio 15.4 (8-20); Calcium 8.9 mg/dL (8.6-10.3); EGFR African American 30.4 (>60); EGFR Non-African American 25.1 (>60); Potassium 3.9 mmol/L (3.5-5.0)
[2018-08-31] MEDS: Levothyroxine INJ* 100 MCG/5 ML VIAL IV SCH (06:45)
[2018-08-31] MEDS: Insulin LISPRO* 1 UNITS UNIT SUBCUT SCH ×3 (06:45→19:10)
--- NOTE | 2018-08-31 08:46 | PN ---
Subjective Date of Service: 08/31/18 Interval History: Pt is sleeping on a precedex drip. Patient wake the patient at this time. Objective Active Medications: Dextrose (D50w Syringe 50 Ml*) 12.5 gm IV PUSH .FOR FS < 60 - SS PRN PRN Reason: FS < 60 Enoxaparin Sodium (Lovenox(*)) 40 mg SUBCUT Q24H [facility] Last Admin: 08/30/18 17:30 Dose: 40 mg Hydralazine HCl (Apresoline Iv*) 5 mg IV SLOW PU Q6H PRN PRN Reason: Systolic Bp Greater Than:190 Last Admin: 08/30/18 14:39 Dose: 5 mg Sodium Chloride (Ns 0.9% 1000 Ml) 1,000 mls @ 125 mls/hr IV PER RATE [facility] Last Admin: 08/31/18 01:18 Dose: 125 mls/hr Dexmedetomidine HCl 800 mcg/ (Sodium Chloride) 200 mls @ 28.9 mls/hr IVPB Q6H [facility]; Protocol Last Admin: 08/31/18 01:24 Dose: 28.8 mls/hr Acyclovir Sodium 900 mg/ (Sodium Chloride) 268 mls @ 268 mls/hr IVPB Q12H [facility] Ampicillin Sodium 2 gm/ Sodium (Chloride) 100 mls @ 200 mls/hr IVPB Q6H [facility] Insulin Glargine (Lantus(*)) 5 units SUBCUT Q24H [facility] Last Admin: 08/30/18 09:13 Dose: 5 units Insulin Human Lispro (Humalog*) 0 units SUBCUT Q6HR [facility]; Protocol Last Admin: 08/31/18 06:45 Dose: 3 units Levothyroxine Sodium (Synthroid Inj*) 37.5 mcg IV 0600 [facility] Last Admin: 08/31/18 06:45 Dose: 37.5 mcg Lorazepam (Ativan Inj*) 2 mg IV PUSH Q4H PRN PRN Reason: ANXIETY Last Admin: 08/30/18 21:49 Dose: 2 mg Metoprolol Tartrate (Lopressor Iv*) 5 mg IV Q6H [facility] Last Admin: 08/31/18 03:05 Dose: 5 mg Vital Signs - 8 hr 08/31/18 08/31/18 08/31/18 01:00 01:01 01:30 Temperature Pulse Rate 69 73 69 Respiratory 27 16 25 Rate Blood Pressure 120/78 123/80 (mmHg) O2 Sat by Pulse 88 92 91 Oximetry 08/31/18 08/31/18 08/31/18 02:00 02:01 02:30 Temperature Pulse Rate 69 68 69 Respiratory 18 21 16 Rate Blood Pressure 116/73 133/76 (mmHg) O2 Sat by Pulse 93 93 92 Oximetry 08/31/18 08/31/18 08/31/18 03:00 03:01 03:30 Temperature Pulse Rate 69 65 66 Respiratory 20 23 20 Rate Blood Pressure 114/76 115/79 (mmHg) O2 Sat by Pulse 90 93 93 Oximetry 08/31/18 08/31/18 08/31/18 03:55 04:00 04:01 Temperature 97.3 F Pulse Rate 65 65 Respiratory 20 21 21 Rate Blood Pressure 147/87 (mmHg) O2 Sat by Pulse 94 94 Oximetry 08/31/18 08/31/18 08/31/18 04:30 05:00 06:00 Temperature Pulse Rate 65 65 66 Respiratory 20 17 20 Rate Blood Pressure 141/87 (mmHg) O2 Sat by Pulse 93 95 95 Oximetry 08/31/18 08:00 Temperature 96.8 F Pulse Rate Respiratory Rate Blood Pressure (mmHg) O2 Sat by Pulse Oximetry Oxygen Devices in Use Now: Nasal Cannula Appearance: Elderly obese male lying in bed, NAD Eyes: No Scleral Icterus Ears/Nose/Mouth/Throat: Mucous Membranes Moist Respiratory: Symmetrical Chest Expansion and Respiratory Effort, Clear to Auscultation - anteriorly Cardiovascular: NL Sounds; No Murmurs; No JVD, RRR, No Edema Abdominal: NL Sounds; No Tenderness; No Distention Extremities: No Clubbing, Cyanosis Skin: No Nodules or Sclerosis Neurological: - - sleeping soundly, does not rouse to voice or light touch Result Diagrams: 08/31/18 05:10 08/31/18 05:10 Microbiology and Other Data: Microbiology 08/29/18 17:40 CSF Gram Stain (Tube 3) - Final Cerebral Spinal Fluid 08/29/18 19:50 Nasal Screen MRSA (PCR) - Final Nasal Mrsa Not Detected Assess/Plan/Problems-Billing Mr Harry is a 73 yo M who has a h/o DM, HTN, morbid obesity and CAD who presented to the ER after he was noted to fall a couple times but was also aphasic and subsequently found to be weak on the left. - Patient Problems (1) Altered mental status Current Visit: Yes Status: Acute Code(s): R41.82 - ALTERED MENTAL STATUS, UNSPECIFIED SNOMED Code(s): 856884052 Comment: The patient is sleeping soundly on a precedex drip at this time. He does not wake up for me to see how his mental state is today. 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 ID consult requested. Will continue acyclovir for now (dose reduced due to new renal failure). Ampicillin continues but I doubt this needs to be continued as there are no clear signs of bacterial meningitis. EEG slowed but no epileptiform discharges. No evidence of CVA. (2) Aphasia Current Visit: Yes Status: Acute Code(s): R47.01 - APHASIA SNOMED Code(s) : 96431213 Comment: Will monitor mental status/aphasia, wean precedex some to see if pt is improved at all. (3) ARF (acute renal failure) Current Visit: Yes Status: Acute Comment: The patient's creatinine is now up to 2.53 from 0.96 on admission. A healy was placed last night after a bladder scan revealed urinary retention after an incontinent episode. Will continue IVF, follow BMP. Renal ultrasound done but report pending. ? post renal renal failure vs ATN from prolonged pre-renal state. (4) HTN (hypertension) Current Visit: Yes Status: Acute Code(s): I10 - ESSENTIAL (PRIMARY) HYPERTENSION SNOMED Code(s): 08270013 Comment: BP improved on precedex drip and scheduled IV metoprolol. Continue to monitor BP. (5) Type II diabetes mellitus Current Visit: Yes Status: Acute Comment: Sugars remain moderately elevated. Will increase lantus to 8 units SQ daily and continue q6hr lispro sliding scale. (6) CAD (coronary artery disease) Current Visit: Yes Status: Acute Code(s): I25.10 - ATHSCL HEART DISEASE OF [place] CORONARY ARTERY W/O ANG PCTRS SNOMED Code(s): 15295852 Comment: No signs of ACS. Continue metoprolol. If pt remains unable to eat/ drink will need to reconsider placing NG tube (was tried earlier in the admission but was unable to be placed). (7) DVT prophylaxis Current Visit: Yes Status: Acute Code(s): SVC4970 - SNOMED Code(s): 617358551 Comment: vanessax (8) Full code status Current Visit: Yes Status: Acute Code(s): Z78.9 - OTHER SPECIFIED HEALTH STATUS SNOMED Code(s): 519384228
[2018-08-31] MEDS: Insulin GLARGINE(*) 1 UNITS UNIT SUBCUT SCH (08:54)
[2018-08-31] MEDS: ACYCLOVIR IVPB SCH ×3 (10:42→23:34)
[2018-08-31] MEDS ORDERED: Ampicillin ADVAN(*) 2 GM in NS 0.9% 100 ML* 100 ML IVPB SCH (12:00)
[2018-08-31] MEDS: LORazepam INJ* 2 MG/ML 1 ML VIAL IV PUSH PRN ×2 (12:10→19:49)
--- NOTE | 2018-08-31 12:11 | PN ---
AMENDED REPORT NOW INCLUDES DATE OF FOLLOWUP NEUROLOGICAL FOLLOWUP: DATE OF FOLLOWUP: 08/31/18 PATIENT OF: Dr. Clarke. 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 He has been on Precedex for agitation since last night. I have spoken to the nurse, who notes that depending on the dose of the drip, he will open his eyes and say his name and a couple of words, but they are keeping him sedated for agitation. MEDICATIONS: Include: 1. Metoprolol 5 mg q.6. 2. Lorazepam p.r.n. anxiety. 3. Synthroid 37.5 IV. 4. Insulin regimen. 5. Ampicillin. 6. Acyclovir. 7. Hydralazine 5 mg IV q.6 p.r.n. 8. Lovenox subcu 40 mg q.24 hours. PHYSICAL EXAMINATION: Temperature 96.8, pulse 66, respirations 20, blood pressure 141/87. He was somnolent and would stir and briefly move both sides with noxious stimulation. He is on his Precedex currently. Chest: Clear. Cardiovascular: Regular rate and rhythm. Abdomen: Soft. DIAGNOSTIC STUDIES: He has no further testing back from his CSF at this point. His influenza serologies are negative. His chemistries today show bump in BUN and creatinine to 39 and 2.53, glucose 268. White count is down. It had been as high as 16 yesterday; now, it is 7.4 with normal CBC. I had discussed Mr. Harry's case in relative detail yesterday with Dr. Lin prior to his seeing Mr. Harry. He told me that the ampicillin and acyclovir were appropriate, but he is not in yet and it is unclear if he will be able to see today. If he will not, I will call him or call ID for more detailed phone consultation. Depending on what ID says and what further tests they order, I might add an autoimmune encephalitis panel and depending on how Mr. Harry does, we may consider further treatment along those lines. Thank you for sharing his case. [id number]/[facility] #: [id number] [facility]
[2018-08-31] MEDS ORDERED: fentaNYL* 50 MCG/ML 2 ML VIAL (100 MCG VIAL) ONE (12:15)
[2018-08-31] MEDS ORDERED: fentaNYL* 50 MCG/ML 2 ML VIAL (100 MCG VIAL) IV ONE (12:30)
[2018-08-31 17:38] LABS: CSF VDRL Negative (Negative)
[2018-08-31] MEDS: Enoxaparin(*) 40 MG/0.4 ML SYR SUBCUT SCH (19:10)
[2018-08-31] MEDS: hydrALAZINE IV* 20 MG/ML VIAL IV SLOW PU PRN (19:49)
[2018-09-01] MEDS: Insulin LISPRO* 1 UNITS UNIT SUBCUT SCH ×4 (00:05→18:13)
[2018-09-01 00:53] LABS: HSV 1 PCR, CSF Negative (Negative); HSV 2 PCR, CSF Negative (Negative)
[2018-09-01] MEDS: NS 0.9% IVPB SCH ×6 (01:55→22:42)
[2018-09-01] MEDS: DEXMEDETOMIDINE IVPB SCH ×5 (01:55→22:42)
[2018-09-01] MEDS: Metoprolol Tartrate IV* 1 MG/ML 5 ML VIAL IV SCH ×4 (05:05→22:42)
[2018-09-01] MEDS ORDERED: Haloperidol INJ IV/IM* 5 MG/ML AMP IM ONE ×2 (05:15→20:40)
[2018-09-01] MEDS: Levothyroxine INJ* 100 MCG/5 ML VIAL IV SCH (06:24)
[2018-09-01] MEDS: NS 0.9% 1000 ML** 1,000 ML IV SCH (06:25)
[2018-09-01] MEDS: Insulin GLARGINE(*) 1 UNITS UNIT SUBCUT SCH (09:58)
[2018-09-01 10:11] LABS: ABS Basophils 0 10^3/ul (0-0.2); ABS Eosinophils 0 10^3/ul (0-0.6); ABS Lymphocytes 1.5 10^3/ul (1.0-4.8); ABS Monocytes 0.8 10^3/ul (0-0.8); ABS Neutrophils 4.6 10^3/ul (1.5-7.7); ABS Nucleated RBC 0 10^3/ul; Eosinophil % 0.7 %; Hematocrit 46 % (42-52); Hemoglobin 15.3 g/dl (14.0-18.0); Lymphocyte % 21.3 %; Mean Corpuscular HGB Conc 33 g/dl (31-36); Mean Corpuscular Hemoglobin 29 pg (27-31); Mean Corpuscular Volume 88 fL (80-94); Mean Platelet Volume 8.8 fL (7.4-10.4); Nucleated Red Blood Cells % 0.1; Platelet Count 154 10^3/ul (150-450); Red Blood Count 5.21 10^6/ul (4.00-5.40); Red Cell Distribution Width 14 % (10.5-15)
[2018-09-01 10:33] LABS: Albumin 3.7 g/dL (3.2-5.2); Albumin/Globulin Ratio 1.2 (1-3); BUN/Creatinine Ratio 13.5 (8-20); EGFR African American 26.1 (>60); EGFR Non-African American 21.6 (>60); Globulin 3.1 g/dL (2-4); Phosphorus 4.2 mg/dL (2.5-5.0); Potassium 3.6 mmol/L (3.5-5.0); Total Bilirubin 0.9 mg/dL (0.2-1.0); Total Protein 6.8 g/dL (6.4-8.9)
[2018-09-01] MEDS: fentaNYL* 50 MCG/ML 2 ML VIAL (100 MCG VIAL) IV SLOW PU PRN ×3 (11:01→23:26)
[2018-09-01] MEDS: ACYCLOVIR IVPB SCH (11:01)
[2018-09-01 12:14] LABS: Urine Creatinine Concentration 54.96 mg/dL
[2018-09-01] MEDS ORDERED: Acetaminophen TAB* 325 MG PO PRN (15:08)
[2018-09-01] MEDS: D5W 1/2 NS 1000 ML BAG* 1,000 ML IV SCH (15:40)
[2018-09-01] MEDS: Acetaminophen SUPP* 650 MG SUPP PR PRN (15:45)
[2018-09-01] MEDS: Enoxaparin(*) 30 MG/0.3 ML SYR SUBCUT SCH (18:14)
[2018-09-01] MEDS: hydrALAZINE IV* 20 MG/ML VIAL IV SLOW PU PRN (18:41)
--- NOTE | 2018-09-01 19:26 | HP ---
HISTORY AND PHYSICAL: DATE OF ADMISSION: CHIEF COMPLAINT: Altered mental status. HISTORY OF PRESENT ILLNESS: The patient is a 73-year-old gentleman with a past medical history of hypertension, coronary artery disease, type 2 diabetes, and hypercholesterolemia. He presented to the emergency department on 08/29/18 with altered mentation. He subsequently was evaluated and seen by the hospitalist service and the neurology service. He was transferred to the ICU for ongoing management of agitation and altered mentation. During the hospital course, the patient has undergone evaluation for altered mentation and it was thought that most likely cause of his altered mentation is viral encephalitis. He is currently being treated for the encephalitis with acyclovir. At the time of my evaluation, I found the patient who was responsive with verbal gargle, and then moving all 4 extremities. He did not provide any history. He has been on Precedex infusion, then has received intermittent fentanyl. MEDICATIONS: His medications consisted of: 1. Metoprolol. 2. Lopressor. 3. Synthroid. 4. Insulin. 5. Ampicillin. 6. Currently, receiving acyclovir. 7. Hydralazine. 8. Lovenox. PHYSICAL EXAMINATION GENERAL: I found an obese, elderly male, who was unresponsive appropriately to verbal commands. He did open his eyes intermittently and did grunt intermittently. He did not appear any respiratory distress or pain. VITAL SIGNS: His temperature was 98.4, his pulse was 73, his respiratory rate was 22, oxygen saturation was 96% on room air, blood pressure 157/77, and mean blood pressure was 99. HEENT: Mucous membranes pink and moist, anicteric. Oral mucosa, there was no erythema. NECK: Supple. LUNGS: Clear to auscultation. CARDIOVASCULAR: S1, S2 regular. ABDOMEN: Soft, nontender. EXTREMITIES: There was no edema, cyanosis or clubbing noted. NEUROLOGIC: He was moving all 4 extremities; however, it was unpurposeful, not following any commands. DIAGNOSTIC STUDIES/LAB DATA: Laboratory workup was reviewed, which consisted of white count of 7.0, hemoglobin of 17.3, hematocrit of 46, platelets of 154, and sodium 148, potassium 3.6, chloride of 116, bicarb of 21, BUN of 11, creatinine of 2.88, which has increased from his baseline. His blood glucose has been in the 200s, calcium 9.0, phosphorous 4.2, mag of 2.0. LFTs are within normal limits. Albumin is 3.7. Blood gas completed on 08/29/18 revealed a pH of 7.44, pCO2 of 29, pO2 of 83, saturating 96%. Urinalysis was 1+ for wbc and 3+ for glucose. Microbiology cultures including cultures, blood, and CSF have shown no growth. CSF analysis revealed a total WBC count of 16 with lymphocytic predominance, glucose of 150, and a protein of 53. VDRL was negative, crypto antigen negative , HSV1, PCR negative, herpes 2 DNA negative so far. Imaging studies: Renal ultrasound completed on 08/31/18 did not reveal any hydronephrosis, findings consistent with fatty liver. The patient has also had an MRI of the brain with no acute pathology. Chest x-ray completed on 08/29/18 revealed a tortuous aorta with widening mediastinum, progressed when compared to x- ray on 10/16, consider further evaluation with a CT angio. Transthoracic echo was also done. Findings were consistent with ejection fraction of 50%. Overall, the study was poor because of movement. IMPRESSION AND PLAN: 1. 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 In addition, the patient is requiring Precedex infusion for agitation and sedation. He is also receiving fentanyl p.r.n. for increased pain and agitation. Would continue the current management. I have discussed the findings with the neurologist, who agrees that will continue current management for his altered mentation since the CSF analysis did not reveal any other source of pathology. 2. Elevated creatinine possibly prerenal. I would recommend IV fluids to be initiated and monitoring urine output closely with a Mclaughlin catheter. I have asked the pharmacist to adjust this current medication to reflect patient 's current renal function. 3. Tortuous aorta on chest x-ray. It would be difficult to do a CT scan with contrast with the patient given his current state, however, repeat chest x-ray should be considered for further evaluation. We will continue to follow in the ICU. [id number]/[facility] #: [id number] [facility] HOSPITALTorsten
--- NOTE | 2018-09-01 20:00 | PN ---
Subjective Date of Service: 09/01/18 Interval History: Pt seen and examined. Meds and labs reviewed. CC: N/A ROS: Could not be reliably obtained PHYSICAL EXAM: GEN APPEARANCE: Sedated, not in acute distress, obese HEENT: NC/AT, PERRLA, moist oral mucosa, (-) throat erythema NECK: Soft, supple, (-) cervical LAD, (-)JVD HEART: S1S2 WNL, RRR, No MRG CHEST: CTA, BL, GAE, No W/R/R ABD: Soft, ND/NT, NABS 4x Q EXT: No C/C/E SKIN: Warm to touch PSYCH: No active psychosis, hallucinations, depression, SI/HI Objective Active Medications: Acetaminophen (Tylenol Supp*) 650 mg [place] Q6H PRN PRN Reason: Pain/Fever Last Admin: 09/01/18 15:45 Dose: 650 mg Dextrose (D50w Syringe 50 Ml*) 12.5 gm IV PUSH .FOR FS < 60 - SS PRN PRN Reason: FS < 60 Enoxaparin Sodium (Lovenox(*)) 30 mg SUBCUT Q24H [facility] Last Admin: 09/01/18 18:14 Dose: 30 mg Fentanyl Citrate (Fentanyl*) 50 mcg IV SLOW PU Q4H PRN PRN Reason: Agitation Last Admin: 09/01/18 16:17 Dose: 50 mcg Hydralazine HCl (Apresoline Iv*) 5 mg IV SLOW PU Q6H PRN PRN Reason: Systolic Bp Greater Than:190 Last Admin: 09/01/18 18:41 Dose: 5 mg Dexmedetomidine HCl 800 mcg/ (Sodium Chloride) 200 mls @ 39.73 mls/hr IVPB Q5H [facility]; Protocol Last Admin: 09/01/18 19:41 Dose: 39.73 mls/hr Dextrose/Sodium Chloride (D5w 1/2 Ns 1000 Ml Bag*) 1,000 mls @ 75 mls/hr IV PER RATE [facility] Stop: 09/04/18 05:19 Last Admin: 09/01/18 15:40 Dose: 75 mls/hr Acyclovir Sodium 900 mg/ (Sodium Chloride) 268 mls @ 268 mls/hr IVPB Q24H [facility] Insulin Glargine (Lantus(*)) 5 units SUBCUT Q24H [facility] Last Admin: 09/01/18 09:58 Dose: 5 units Insulin Human Lispro (Humalog*) 0 units SUBCUT Q6HR [facility]; Protocol Last Admin: 09/01/18 18:13 Dose: 2 units Levothyroxine Sodium (Synthroid Inj*) 37.5 mcg IV 0600 [facility] Last Admin: 09/01/18 06:24 Dose: 37.5 mcg Lorazepam (Ativan Inj*) 2 mg IV PUSH Q4H PRN PRN Reason: ANXIETY Last Admin: 08/31/18 19:49 Dose: 2 mg Metoprolol Tartrate (Lopressor Iv*) 5 mg IV Q6H [facility] Last Admin: 09/01/18 15:45 Dose: 5 mg Vital Signs - 8 hr 09/01/18 09/01/18 09/01/18 12:00 12:20 12:30 Temperature 99.1 F Pulse Rate 72 73 Respiratory 22 Rate Blood Pressure 157/77 145/80 (mmHg) O2 Sat by Pulse 96 95 Oximetry 09/01/18 09/01/18 09/01/18 13:00 13:01 13:30 Temperature 100.6 F 100.8 F Pulse Rate 88 86 Respiratory 20 17 Rate Blood Pressure 185/97 185/95 (mmHg) O2 Sat by Pulse 97 93 Oximetry 09/01/18 09/01/18 09/01/18 14:00 14:01 14:30 Temperature 100.9 F 101.3 F Pulse Rate 89 83 Respiratory 20 33 10 Rate Blood Pressure 166/88 192/128 (mmHg) O2 Sat by Pulse 94 96 Oximetry 09/01/18 09/01/18 09/01/18 15:00 15:30 16:00 Temperature 101.5 F 101.3 F 101.5 F Pulse Rate 82 93 Respiratory 18 25 Rate Blood Pressure 206/117 175/92 185/109 (mmHg) O2 Sat by Pulse 96 96 Oximetry 09/01/18 09/01/18 09/01/18 16:10 16:17 16:31 Temperature 101.5 F Pulse Rate Respiratory 22 20 Rate Blood Pressure 184/91 (mmHg) O2 Sat by Pulse Oximetry 09/01/18 09/01/18 09/01/18 17:00 17:31 18:00 Temperature 101.5 F 101.5 F 101.5 F Pulse Rate Respiratory 15 20 Rate Blood Pressure 189/106 220/130 203/114 (mmHg) O2 Sat by Pulse Oximetry 09/01/18 09/01/18 09/01/18 18:30 18:50 19:00 Temperature 101.1 F 101.1 F 101.1 F Pulse Rate 71 79 80 Respiratory 23 21 21 Rate Blood Pressure 202/117 172/96 165/98 (mmHg) O2 Sat by Pulse 98 94 95 Oximetry Oxygen Devices in Use Now: Nasal Cannula Result Diagrams: 09/01/18 09:15 09/01/18 09:15 Microbiology and Other Data: Microbiology 08/29/18 17:40 CSF Gram Stain (Tube 3) - Final Cerebral Spinal Fluid 08/29/18 19:50 Nasal Screen MRSA (PCR) - Final Nasal Mrsa Not Detected Assess/Plan/Problems-Billing Mr Harry is a 73 yo M who has a h/o DM, HTN, morbid obesity and CAD who presented to the ER after he was noted to fall a couple times but was also aphasic and subsequently found to be weak on the left. - Patient Problems (1) Altered mental status Current Visit: Yes Status: Acute Code(s): R41.82 - ALTERED MENTAL STATUS, UNSPECIFIED SNOMED Code(s): 177800448 Comment: -D/W Dr. Cortez -Doing well w/ Precedex gtt in addition w/50 ug q4H PRN IV fentanyl The patient is sleeping soundly on a precedex drip at this time. He does not wake up for me to see how his mental state is today. 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 ID consult requested. Will continue acyclovir for now (dose reduced due to new renal failure). Ampicillin continues but I doubt this needs to be continued as there are no clear signs of bacterial meningitis. EEG slowed but no epileptiform discharges. No evidence of CVA. (2) Aphasia Current Visit: Yes Status: Acute Code(s): R47.01 - APHASIA SNOMED Code(s) : 01068751 Comment: Will monitor mental status/aphasia, wean precedex some to see if pt is improved at all. (3) ARF (acute renal failure) Current Visit: Yes Status: Acute Comment: The patient's creatinine is now up to 2.53 from 0.96 on admission. A healy was placed last night after a bladder scan revealed urinary retention after an incontinent episode. Will continue IVF, follow BMP. Renal ultrasound done but report pending. ? post renal renal failure vs ATN from prolonged pre-renal state. (4) HTN (hypertension) Current Visit: Yes Status: Acute Code(s): I10 - ESSENTIAL (PRIMARY) HYPERTENSION SNOMED Code(s): 25303121 Comment: BP improved on precedex drip and scheduled IV metoprolol. Continue to monitor BP. (5) Type II diabetes mellitus Current Visit: Yes Status: Acute Comment: -Continue current regimen; adjust for FS>180 on average (6) CAD (coronary artery disease) Current Visit: Yes Status: Acute Code(s): I25.10 - ATHSCL HEART DISEASE OF [place] CORONARY ARTERY W/O ANG PCTRS SNOMED Code(s): 18304278 Comment: No signs of ACS. Continue metoprolol. If pt remains unable to eat/ drink will need to reconsider placing NG tube (was tried earlier in the admission but was unable to be placed). (7) DVT prophylaxis Current Visit: Yes Status: Acute Code(s): FEP1336 - SNOMED Code(s): 748047207 Comment: lovenox Status and Disposition: -As above
--- NOTE | 2018-09-01 21:02 | PN ---
NEUROLOGICAL FOLLOWUP: DATE: 09/01/18 PATIENT OF: The hospitalist. 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 MEDICATIONS: His medicines include: 1. Metoprolol. 2. Lorazepam for anxiety. 3. Synthroid. 4. Insulin, unchanged. 5. Hydralazine p.r.n. 6. His fentanyl as mentioned. 7. Lovenox 40 mg subcu. 8. Dexmedetomidine drip. 9. Acyclovir. PHYSICAL EXAMINATION: On exam, temperature 98.4, pulse 73, respirations 22, blood pressure 157/77. He was sedated, but would awake to mildly noxious stim. He would curse and then he would mumble 4 or 5 words. He moves all extremities with power and there was no obvious facial asymmetry. Chest clear. Cardiovascular: Regular rate and rhythm. Abdomen was soft. DIAGNOSTIC STUDIES/LAB DATA: His CBC was normal, down from a white count of 16. His herpes PCR, cryptococcal antigen, and VDRL are all negative as of today. ASSESSMENT AND PLAN: I had spoken to Dr. Clarke yesterday who had informed me that Dr. Lin had seen this patient in detail and had recommended continuing the acyclovir for now and this is before the titers came back and that we will not treat with steroids or any other treatment for paraneoplastic syndrome until we are sure what the herpes PCR was. Clinically, the patient has improved and has more speech output, but is still significantly affected. I am going to speak to him in terms of whether he feels comfortable discontinuing the acyclovir, these were cases where you could have negative herpes PCR and still conceivably have herpes and also I will discuss with him and Dr. Matamoros, the neurologist who is coming on, at what point we would begin treatment for paraneoplastic syndrome. I think if he continues to improve, this may be more likely viral. The improvement is subtle , but I think is definite and the ICU attending notes that he has been less agitated and speaking more while he has been sedating him and notes the improvement as well. Thank you for sharing his case. [id number]/[facility] #: [id number] LILO
[2018-09-01 23:03] LABS: Urine Appearance Cloudy; Urine Bacteria Absent (Absent); Urine Bilirubin Negative (Negative); Urine Blood 3+ (Negative); Urine Color Yellow; Urine Glucose 2+(150 mg/dL) (Negative); Urine Ketones Trace (Negative); Urine Nitrite Negative (Negative); Urine Protein 1+(30 mg/dL) (Negative); Urine Red Blood Cell 3+(>10/hpf) (Absent); Urine Specific Gravity 1.011 (1.010-1.030); Urine Urobilinogen Negative (Negative); Urine White Blood Cell 1+(6-10/hpf) (Absent)
[2018-09-02] MEDS: Insulin LISPRO* 1 UNITS UNIT SUBCUT SCH ×5 (00:30→23:45)
[2018-09-02] MEDS: DEXMEDETOMIDINE IVPB SCH ×6 (01:19→23:01)
[2018-09-02] MEDS: NS 0.9% IVPB SCH ×6 (01:19→23:01)
[2018-09-02] MEDS: LORazepam INJ* 2 MG/ML 1 ML VIAL IV PUSH PRN ×2 (02:05→16:36)
[2018-09-02] MEDS: Metoprolol Tartrate IV* 1 MG/ML 5 ML VIAL IV SCH ×4 (04:06→20:47)
[2018-09-02] MEDS: D5W 1/2 NS 1000 ML BAG* 1,000 ML IV SCH (04:27)
[2018-09-02 05:10] LABS: ABS Basophils 0 10^3/ul (0-0.2); ABS Eosinophils 0.1 10^3/ul (0-0.6); ABS Lymphocytes 1.7 10^3/ul (1.0-4.8); ABS Monocytes 0.8 10^3/ul (0-0.8); ABS Neutrophils 4.5 10^3/ul (1.5-7.7); ABS Nucleated RBC 0 10^3/ul; Eosinophil % 0.8 %; Hematocrit 45 % (42-52); Lymphocyte % 23.6 %; Mean Corpuscular HGB Conc 33 g/dl (31-36); Mean Corpuscular Hemoglobin 30 pg (27-31); Mean Corpuscular Volume 89 fL (80-94); Mean Platelet Volume 8.6 fL (7.4-10.4); Nucleated Red Blood Cells % 0; Platelet Count 136 10^3/ul (150-450); Red Blood Count 5.02 10^6/ul (4.00-5.40); Red Cell Distribution Width 14 % (10.5-15); White Blood Count 7.2 10^3/ul (3.5-10.8)
[2018-09-02 05:27] LABS: Albumin 3.5 g/dL (3.2-5.2); Albumin/Globulin Ratio 1.2 (1-3); BUN/Creatinine Ratio 14.1 (8-20); Calcium 8.8 mg/dL (8.6-10.3); EGFR African American 28.2 (>60); EGFR Non-African American 23.3 (>60); Phosphorus 5.9 mg/dL (2.5-5.0); Potassium 4.2 mmol/L (3.5-5.0); Total Bilirubin 0.8 mg/dL (0.2-1.0); Total Protein 6.5 g/dL (6.4-8.9)
[2018-09-02] MEDS: Levothyroxine INJ* 100 MCG/5 ML VIAL IV SCH (06:37)
[2018-09-02] MEDS: Insulin GLARGINE(*) 1 UNITS UNIT SUBCUT SCH (08:52)
[2018-09-02] MEDS: cefTRIAXone(*) 1 GM in NS 0.9% 50 ML* 50 ML IVPB SCH (08:53)
[2018-09-02] MEDS ORDERED: D5W 1000 ML BAG* 1,000 ML IV SCH ×2 (09:00)
[2018-09-02] MEDS ORDERED: NS 0.9% IVPB SCH (11:00)
[2018-09-02] MEDS ORDERED: ACYCLOVIR IVPB SCH (11:00)
[2018-09-02] MEDS: Enoxaparin(*) 30 MG/0.3 ML SYR SUBCUT SCH (16:59)
[2018-09-02] MEDS: fentaNYL* 50 MCG/ML 2 ML VIAL (100 MCG VIAL) IV SLOW PU PRN ×2 (16:59→23:52)
--- NOTE | 2018-09-02 18:39 | PN ---
Subjective Date of Service: 09/02/18 Interval History: Pt seen and examined. Meds and labs reviewed. CC: N/A ROS: Could not be reliably obtained PHYSICAL EXAM: GEN APPEARANCE: Sedated, not in acute distress, obese HEENT: NC/AT, PERRLA, moist oral mucosa, (-) throat erythema NECK: Soft, supple, (-) cervical LAD, (-)JVD HEART: S1S2 WNL, RRR, No MRG CHEST: CTA, BL, GAE, No W/R/R ABD: Soft, ND/NT, NABS 4x Q EXT: No C/C/E SKIN: Warm to touch PSYCH: No active psychosis, hallucinations, depression, SI/HI Objective Active Medications: Acetaminophen (Tylenol Supp*) 650 mg [place] Q6H PRN PRN Reason: Pain/Fever Last Admin: 09/01/18 15:45 Dose: 650 mg Dextrose (D50w Syringe 50 Ml*) 12.5 gm IV PUSH .FOR FS < 60 - SS PRN PRN Reason: FS < 60 Enoxaparin Sodium (Lovenox(*)) 30 mg SUBCUT Q24H [facility] Last Admin: 09/02/18 16:59 Dose: 30 mg Fentanyl Citrate (Fentanyl*) 50 mcg IV SLOW PU Q4H PRN PRN Reason: Agitation Last Admin: 09/02/18 16:59 Dose: 50 mcg Hydralazine HCl (Apresoline Iv*) 5 mg IV SLOW PU Q6H PRN PRN Reason: Systolic Bp Greater Than:190 Last Admin: 09/01/18 18:41 Dose: 5 mg Dexmedetomidine HCl 800 mcg/ (Sodium Chloride) 200 mls @ 50.57 mls/hr IVPB Q4H [facility]; Protocol Last Admin: 09/02/18 16:35 Dose: 78.3 mls/hr Ceftriaxone Sodium 1 gm/ (Sodium Chloride) 50 mls @ 200 mls/hr IVPB Q24H [facility] Last Admin: 09/02/18 08:53 Dose: 200 mls/hr Dextrose (D5w 1000 Ml Bag*) 1,000 mls @ 75 mls/hr IV PER RATE [facility] Stop: 09/03/18 22:19 Last Admin: 09/02/18 08:56 Dose: 75 mls/hr Doxycycline Hyclate 100 mg/ (Sodium Chloride) 250 mls @ 250 mls/hr IVPB Q12H [facility] Insulin Glargine (Lantus(*)) 14 units SUBCUT Q24H [facility] Insulin Human Lispro (Humalog*) 0 units SUBCUT Q6HR [facility]; Protocol Last Admin: 09/02/18 17:12 Dose: 3 units Levothyroxine Sodium (Synthroid Inj*) 37.5 mcg IV 0600 [facility] Last Admin: 09/02/18 06:37 Dose: 37.5 mcg Lorazepam (Ativan Inj*) 2 mg IV PUSH Q4H PRN PRN Reason: ANXIETY Last Admin: 09/02/18 16:36 Dose: 2 mg Metoprolol Tartrate (Lopressor Iv*) 5 mg IV Q6H [facility] Last Admin: 09/02/18 15:14 Dose: 5 mg Vital Signs - 8 hr 09/02/18 09/02/18 09/02/18 11:00 12:00 13:00 Temperature 100.2 F 100.6 F 100.4 F Pulse Rate 77 82 94 Respiratory 18 23 22 Rate Blood Pressure (mmHg) O2 Sat by Pulse 93 91 96 Oximetry 09/02/18 09/02/18 09/02/18 13:03 13:30 14:00 Temperature 100.4 F 100.0 F 100.0 F Pulse Rate 68 68 74 Respiratory 21 20 20 Rate Blood Pressure 168/95 162/89 165/98 (mmHg) O2 Sat by Pulse 91 93 90 Oximetry 09/02/18 09/02/18 09/02/18 14:30 15:00 15:01 Temperature 100.0 F 100.2 F 100.2 F Pulse Rate 64 78 76 Respiratory 17 18 23 Rate Blood Pressure 163/93 159/91 (mmHg) O2 Sat by Pulse 88 96 93 Oximetry 09/02/18 09/02/18 09/02/18 15:30 16:00 16:01 Temperature 100.4 F 100.8 F 100.8 F Pulse Rate 79 86 87 Respiratory 18 15 29 Rate Blood Pressure 161/100 160/102 (mmHg) O2 Sat by Pulse 87 94 93 Oximetry 09/02/18 09/02/18 16:36 16:59 Temperature Pulse Rate Respiratory 24 24 Rate Blood Pressure (mmHg) O2 Sat by Pulse Oximetry Oxygen Devices in Use Now: Nasal Cannula Result Diagrams: 09/02/18 05:00 09/02/18 14:20 Microbiology and Other Data: Microbiology 08/29/18 17:40 CSF Gram Stain (Tube 3) - Final Cerebral Spinal Fluid 08/29/18 19:50 Nasal Screen MRSA (PCR) - Final Nasal Mrsa Not Detected Assess/Plan/Problems-Billing Mr Harry is a 73 yo M who has a h/o DM, HTN, morbid obesity and CAD who presented to the ER after he was noted to fall a couple times but was also aphasic and subsequently found to be weak on the left. - Patient Problems (1) Altered mental status Current Visit: Yes Status: Acute Code(s): R41.82 - ALTERED MENTAL STATUS, UNSPECIFIED SNOMED Code(s): 602572875 Comment: -D/W Dr. 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 Lin; will touch base on Tuesday (2) Aphasia Current Visit: Yes Status: Acute Code(s): R47.01 - APHASIA SNOMED Code(s) : 14729203 Comment: Will monitor mental status/aphasia, wean precedex some to see if pt is improved at all. (3) ARF (acute renal failure) Current Visit: Yes Status: Acute Comment: -Likely due to ATN given FENa= 4.74% and FE-Urea =51.86% -Slightly improved -Continue watchful waiting (4) HTN (hypertension) Current Visit: Yes Status: Acute Code(s): I10 - ESSENTIAL (PRIMARY) HYPERTENSION SNOMED Code(s): 22253746 Comment: BP improved on precedex drip and scheduled IV metoprolol. Continue to monitor BP. (5) Type II diabetes mellitus Current Visit: Yes Status: Acute Comment: -Increased Lantus as ordered -Continue to monitor (6) CAD (coronary artery disease) Current Visit: Yes Status: Acute Code(s): I25.10 - ATHSCL HEART DISEASE OF [place] CORONARY ARTERY W/O ANG PCTRS SNOMED Code(s): 31087282 Comment: No signs of ACS. Continue metoprolol. If pt remains unable to eat/ drink will need to reconsider placing NG tube (was tried earlier in the admission but was unable to be placed). (7) DVT prophylaxis Current Visit: Yes Status: Acute Code(s): XWM7624 - SNOMED Code(s): 196714399 Comment: lovenox Status and Disposition: -As above -Updated both his brothers this AM and was very pleased w/having their questions answered
[2018-09-02] MEDS: DOXYcycline IV* 100 MG in NS 0.9% 250 ML* 250 ML IVPB SCH (19:24)
--- NOTE | 2018-09-02 19:39 | CONS ---
NEUROLOGY FOLLOWUP CONSULTATION: DATE OF FOLLOWUP: 09/02/18 HOSPITALIST: Dr. Veronica. LOCATION: He is in ICU bed 8. CHIEF COMPLAINT: Unresponsiveness. INTERVAL HISTORY: Since yesterday, Mr. Harry has been intermittently agitated and has required sedati on. He just received some a little while ago. There have been no new clinical events described. MEDICATIONS: Medications are reviewed and he is on: 1. Acyclovir, which has been changed to renal dosing. 2. Ceftriaxone 1 g IV q.24 hours. 3. Precedex as needed. 4. Lovenox 30 mg subcutaneous q.24 hours. 5. Fentanyl 50 mcg IV q.4 hours as needed for agitation. 6. Hydralazine 5 mg IV q.6 hours as needed for elevated systolic blood pressure. 7. Insulin sliding scale. 8. Levothyroxine 37.5 mcg IV daily. 9. Lorazepam 2 mg IV q.4 hours as needed for anxiety. 10. Metoprolol 5 mg IV q.6 hours. PHYSICAL EXAM: On physical examination, he is morbidly obese. The most recent temperature is 100.8 by Mclaughlin probe, blood pressure 160/102, heart rate in the 80s, respiratory rate is 29 and oxygen satu ration is 93% on supplemental oxygen. He is very somnolent and I could not arouse him to voice. He is restless and agitated when stimulate d and moves all 4 extremities vigorously. When I open his eyes, his pupils are reactive to light fro m 3 down to 2 mm. He responds to nasal tickle symmetrically on the face with symmetrical facial move ments. He does not verbalize. He has bilateral Babinski signs. DIAGNOSTIC STUDIES/LAB DATA: Laboratory data is reviewed. CBC today notable for normalization of hi s white blood cell count to 7.2, normal hemoglobin. Platelet count has come down during the hospital ization to 136,000 today. Urinalysis on 09/01/18, notable for 3+ blood, 3+ red blood cells, 1+ white blood cells, 2+ glucose. HIV 1 and 2 serology is negative. Benzodiazepines were positive on urine scan when he came in. Spinal fluid results are noted. He had 16 white blood cells with a differenti al of 62% lymphocytes, 35% monocytes, 2% neutrophils, and 1% band neutrophils. CSF/VDRL, cryptococca l antigen, and herpes simplex virus 1 and 2, PCR all negative. West Nile virus antibody studies are pending. Spinal fluid culture is negative for growth on day 4. Spinal fluid Gram stain was interrup ramiro as 2+ neutrophils and 3+ nucleated cells, but no organisms. Chest x-ray revealed wide mediastinum, unchanged from the admission chest x-ray of 08/29/18. A renal ultrasound on 08/31/18 interpreted as unremarkable. EEG August 30 interpreted as diffuse slowin g. IMPRESSION: Impression is that of persistent encephalopathy of unclear etiology. He has abnormal spi nal fluid, but normal brain MRI. It is hard to assess if he is doing any better as he is currently s edated, but reading Dr. Awan's initial consultation and subsequent note, he might be a little less obtundent. Again, this is a supposition and not really able to be supported by current exam. His creatinine is rising quite a bit since he came in and his herpes simplex PCR is negative, so I am going to stop acyclovir. I am going to put in some additional blood work to include a sedimentation rates, CRP, HENOK, antineutrophil antibodies, and mycoplasma antibodies. I have also put in for Lyme screen and I am going to start doxycycline. I will continue to follow him along with you. [id number]/[facility] #: [id number]
[2018-09-03] MEDS: NS 0.9% IVPB SCH ×6 (02:56→23:32)
[2018-09-03] MEDS: DEXMEDETOMIDINE IVPB SCH ×6 (02:56→23:32)
[2018-09-03] MEDS: Metoprolol Tartrate IV* 1 MG/ML 5 ML VIAL IV SCH ×4 (03:06→21:16)
[2018-09-03 05:21] LABS: Hematocrit 47 % (42-52); Hemoglobin 15.6 g/dl (14.0-18.0); Mean Corpuscular HGB Conc 33 g/dl (31-36); Mean Corpuscular Hemoglobin 29 pg (27-31); Mean Corpuscular Volume 89 fL (80-94); Mean Platelet Volume 8.6 fL (7.4-10.4); Platelet Count 143 10^3/ul (150-450); Red Blood Count 5.31 10^6/ul (4.00-5.40); Red Cell Distribution Width 14 % (10.5-15); White Blood Count 9.7 10^3/ul (3.5-10.8)
[2018-09-03 05:38] LABS: Albumin 3.6 g/dL (3.2-5.2); Calcium 8.9 mg/dL (8.6-10.3); Magnesium 1.9 mg/dL (1.9-2.7); Potassium 4.3 mmol/L (3.5-5.0); Total Bilirubin 0.8 mg/dL (0.2-1.0)
[2018-09-03 05:44] LABS: Albumin/Globulin Ratio 1.2 (1-3); EGFR African American 34.6 (>60); EGFR Non-African American 28.6 (>60); Phosphorus 4.3 mg/dL (2.5-5.0); Total Protein 6.6 g/dL (6.4-8.9)
[2018-09-03] MEDS: Levothyroxine INJ* 100 MCG/5 ML VIAL IV SCH (06:09)
[2018-09-03] MEDS: Insulin LISPRO* 1 UNITS UNIT SUBCUT SCH ×4 (06:09→23:43)
[2018-09-03] MEDS: DOXYcycline IV* 100 MG in NS 0.9% 250 ML* 250 ML IVPB SCH ×2 (06:11→17:31)
[2018-09-03] MEDS: cefTRIAXone(*) 1 GM in NS 0.9% 50 ML* 50 ML IVPB SCH (07:52)
[2018-09-03] MEDS ORDERED: hydrALAZINE IV* 20 MG/ML VIAL IV SLOW PU PRN (08:30)
[2018-09-03] MEDS ORDERED: Insulin GLARGINE(*) 1 UNITS UNIT SUBCUT SCH ×2 (09:00)
[2018-09-03] MEDS ORDERED: Albuterol/Ipratropium NEB.SOL* Albuterol 2.5 MG/Ipratropium 0.5 MG 3 ML INH PRN ×2 (09:49→16:36)
[2018-09-03] MEDS ORDERED: Albuterol/Ipratropium NEB.SOL* Albuterol 2.5 MG/Ipratropium 0.5 MG 3 ML INH SCH ×2 (12:00→19:00)
[2018-09-03] MEDS: Furosemide IV* 10 MG/ML VIAL (40 MG) IV SCH ×2 (12:43→21:16)
[2018-09-03] MEDS ORDERED: methylPREDNISolone SOD SUCC* 500 MG VIAL IVPB SCH (13:00)
[2018-09-03] MEDS: methylPREDNISolone SOD SUCC* 1,000 MG in NS 0.9% 250 ML* 250 ML IVPB SCH (13:22)
[2018-09-03] MEDS: Acetaminophen SUPP* 650 MG SUPP PR PRN (16:16)
[2018-09-03] MEDS: Enoxaparin(*) 30 MG/0.3 ML SYR SUBCUT SCH (17:31)
[2018-09-03] MEDS: fentaNYL* 50 MCG/ML 2 ML VIAL (100 MCG VIAL) IV SLOW PU PRN (18:33)
--- NOTE | 2018-09-03 19:16 | PN ---
Subjective Date of Service: 09/03/18 Interval History: Pt seen and examined. Meds and labs reviewed. Tachypnea per nursing staff CC: N/A ROS: Could not be reliably obtained PHYSICAL EXAM: GEN APPEARANCE: Sedated, eyes open but not interactive not in acute distress, obese HEENT: NC/AT, PERRLA, moist oral mucosa, (-) throat erythema NECK: Soft, supple, (-) cervical LAD, (-)JVD HEART: S1S2 WNL, RRR, No MRG CHEST: CTA, BL, GAE, No W/R/R, tachypnea ABD: Soft, ND/NT, NABS 4x Q EXT: No C/C/E SKIN: Warm to touch PSYCH: No active psychosis, hallucinations, depression, SI/HI Objective Active Medications: Acetaminophen (Tylenol Supp*) 650 mg WV Q6H PRN PRN Reason: Pain/Fever Last Admin: 09/03/18 16:16 Dose: 650 mg Albuterol/Ipratropium (Duoneb (Albuterol 2.5 Mg/Ipratropium 0.5 Mg)) 1 neb INH Q4H PRN PRN Reason: SOB/WHEEZING Dextrose (D50w Syringe 50 Ml*) 12.5 gm IV PUSH .FOR FS < 60 - SS PRN PRN Reason: FS < 60 Enoxaparin Sodium (Lovenox(*)) 30 mg SUBCUT Q24H [facility] Last Admin: 09/03/18 17:31 Dose: 30 mg Fentanyl Citrate (Fentanyl*) 50 mcg IV SLOW PU Q4H PRN PRN Reason: Agitation Last Admin: 09/03/18 18:33 Dose: 50 mcg Furosemide (Lasix Iv*) 40 mg IV BID RIOS Last Admin: 09/03/18 12:43 Dose: 40 mg Hydralazine HCl (Apresoline Iv*) 10 mg IV SLOW PU Q6H PRN PRN Reason: Systolic Bp Greater Than:190 Last Admin: 09/03/18 16:16 Dose: 10 mg Dexmedetomidine HCl 800 mcg/ (Sodium Chloride) 200 mls @ 50.57 mls/hr IVPB Q4H RIOS; Protocol Last Admin: 09/03/18 07:16 Dose: 42.2 mls/hr Doxycycline Hyclate 100 mg/ (Sodium Chloride) 250 mls @ 250 mls/hr IVPB Q12H [facility] Last Admin: 09/03/18 17:31 Dose: 250 mls/hr Methylprednisolone Sodium Succinate 1,000 mg/ Sodium Chloride 250 mls @ 250 mls /hr IVPB Q24H [facility] Last Admin: 09/03/18 13:22 Dose: 250 mls/hr Ceftriaxone Sodium 2 gm/ (Sodium Chloride) 50 mls @ 200 mls/hr IVPB Q24H [facility] Insulin Glargine (Lantus(*)) 18 units SUBCUT Q24H [facility] Insulin Human Lispro (Humalog*) 0 units SUBCUT Q6HR [facility]; Protocol Last Admin: 09/03/18 17:31 Dose: 3 units Levothyroxine Sodium (Synthroid Inj*) 37.5 mcg IV 0600 [facility] Last Admin: 09/03/18 06:09 Dose: 37.5 mcg Lorazepam (Ativan Inj*) 2 mg IV PUSH Q4H PRN PRN Reason: ANXIETY Last Admin: 09/02/18 16:36 Dose: 2 mg Metoprolol Tartrate (Lopressor Iv*) 5 mg IV Q6H [facility] Last Admin: 09/03/18 15:18 Dose: 5 mg Vital Signs - 8 hr 09/03/18 09/03/18 09/03/18 11:30 12:00 12:30 Temperature 100.2 F 100.2 F 100.2 F Pulse Rate 71 72 70 Respiratory 20 19 20 Rate Blood Pressure 127/82 123/75 150/95 (mmHg) O2 Sat by Pulse 98 96 98 Oximetry 09/03/18 09/03/18 09/03/18 13:00 13:30 14:00 Temperature 100.2 F 100.2 F 100.4 F Pulse Rate 78 72 77 Respiratory 21 20 21 Rate Blood Pressure 146/94 153/100 (mmHg) O2 Sat by Pulse 96 100 100 Oximetry 09/03/18 09/03/18 09/03/18 14:09 14:30 14:33 Temperature 100.8 F 100.8 F Pulse Rate 105 79 82 Respiratory 22 14 28 Rate Blood Pressure 169/100 152/99 (mmHg) O2 Sat by Pulse 98 99 99 Oximetry 09/03/18 09/03/18 09/03/18 15:00 15:01 15:26 Temperature 100.9 F 100.9 F Pulse Rate 82 88 Respiratory 20 20 Rate Blood Pressure 153/93 (mmHg) O2 Sat by Pulse 98 100 Oximetry 09/03/18 09/03/18 09/03/18 15:30 16:00 16:01 Temperature 101.1 F 101.3 F 101.3 F Pulse Rate 77 92 92 Respiratory Rate Blood Pressure 172/103 169/115 (mmHg) O2 Sat by Pulse 99 99 98 Oximetry 09/03/18 09/03/18 09/03/18 16:05 16:30 17:00 Temperature 101.3 F 100.8 F 101.3 F Pulse Rate 85 108 105 Respiratory 16 17 12 Rate Blood Pressure 182/106 178/107 175/105 (mmHg) O2 Sat by Pulse 99 98 97 Oximetry 09/03/18 09/03/18 09/03/18 17:01 17:30 17:44 Temperature 101.3 F 101.3 F Pulse Rate 105 87 Respiratory 16 17 17 Rate Blood Pressure 151/90 (mmHg) O2 Sat by Pulse 98 99 Oximetry 09/03/18 09/03/18 09/03/18 18:00 18:01 18:33 Temperature 101.3 F 101.3 F Pulse Rate 86 86 Respiratory 14 17 20 Rate Blood Pressure (mmHg) O2 Sat by Pulse 99 99 Oximetry Oxygen Devices in Use Now: OxyMask Result Diagrams: 09/03/18 05:08 09/03/18 13:19 Microbiology and Other Data: Microbiology 08/29/18 17:40 CSF Gram Stain (Tube 3) - Final Cerebral Spinal Fluid 08/29/18 19:50 Nasal Screen MRSA (PCR) - Final Nasal Mrsa Not Detected Assess/Plan/Problems-Billing Mr Harry is a 73 yo M who has a h/o DM, HTN, morbid obesity and CAD who presented to the ER after he was noted to fall a couple times but was also aphasic and subsequently found to be weak on the left. - Patient Problems (1) Pulmonary edema Current Visit: Yes Status: Acute Code(s): J81.1 - CHRONIC PULMONARY EDEMA SNOMED Code(s): 33529246 Comment: -Likely iatrogenic -No hx of CHF but hx of CAD -Will trend troponin -Likely diastolic CHF given preserved EF on most recent echo -Placed pt on Lasix IV BID and D/Cd IVF (2) Altered mental status Current Visit: Yes Status: Acute Code(s): R41.82 - ALTERED MENTAL STATUS, UNSPECIFIED SNOMED Code(s): 583086168 Comment: -Appreciate Dr. Mclean re-eval; Acyclovir was D/Cd yesterday and will obtain varicella zoster add on to previous CSF -D/W Dr. Cortez -Doing well w/ Precedex gtt in addition w/50 ug q4H PRN IV fentanyl -Likely due to viral meningoencephalitis vs. vasculitic process per Dr. Matamoros and was placed on Solumedrol---will defer -ID Consult pending although previously discussed w/Dr. Lni; will touch base tomorrow (3) Aphasia Current Visit: Yes Status: Acute Code(s): R47.01 - APHASIA SNOMED Code(s) : 96215677 Comment: Will monitor mental status/aphasia, wean precedex some to see if pt is improved at all. (4) ARF (acute renal failure) Current Visit: Yes Status: Acute Comment: -Likely due to ATN given FENa= 4.74% and FE-Urea =51.86% -Slightly improved -Continue watchful waiting (5) HTN (hypertension) Current Visit: Yes Status: Acute Code(s): I10 - ESSENTIAL (PRIMARY) HYPERTENSION SNOMED Code(s): 41940165 Comment: BP improved on precedex drip and scheduled IV metoprolol. Continue to monitor BP. (6) Type II diabetes mellitus Current Visit: Yes Status: Acute Comment: -Increased Lantus as ordered -Continue to monitor (7) CAD (coronary artery disease) Current Visit: Yes Status: Acute Code(s): I25.10 - ATHSCL HEART DISEASE OF PIL[place] ST[place] CORONARY ARTERY W/O ANG PCTRS SNOMED Code(s): 00130762 Comment: No signs of ACS. Continue metoprolol. If pt remains unable to eat/ drink will need to reconsider placing NG tube (was tried earlier in the admission but was unable to be placed). (8) DVT prophylaxis Current Visit: Yes Status: Acute Code(s): HLA9117 - SNOMED Code(s): 130749357 Comment: lovenox Status and Disposition: -As above -Awaiting Dr. Smart input in AM
--- NOTE | 2018-09-03 21:45 | CONS ---
NEUROLOGY CONSULT FOLLOWUP: DATE OF CONSULT: 09/03/18 HOSPITALIST: Dr. Veronica. LOCATION: He is inpatient, ICU bed 8. CHIEF COMPLAINT: Stupor, encephalopathy. INTERVAL HISTORY: Since yesterday, Boaz has been about the same in speaking with his nurse, Clarice and Dr. Veronica. He gets agitated when he is off Precedex and has a blank stare. He moves all limbs equally. He has required sedation, but he has not been intubated. MEDICATIONS: Medications are reviewed and he is on: 1. Precedex infusion as needed. 2. Doxycycline 100 IV q.12 hours. 3. Lovenox 30 mg subcutaneous q.24 hours. 4. Fentanyl 15 mcg IV q.4 hours p.r.n. agitation. 5. Furosemide 40 mg IV b.i.d. 6. Hydralazine 10 mg IV q.6 hours p.r.n. systolic blood pressure greater than 190. 7. Insulin sliding scale. 8. Levothyroxine 37.5 mg IV daily. 9. Lorazepam 2 mg IV q.4 hours p.r.n. anxiety. 10. Metoprolol 5 mg IV q.6 hours. 11. Ceftriaxone 1 g IV q.24 hours. PHYSICAL EXAM: On exam, he is morbidly obese. He is on nasal trumpet and oxygen mask. Most recent temperature is 100.4 by Mclaughlin probe, blood pressure 160/80, heart rate in the 80s, respiratory rate about 20, and oxygen saturation is 96% on supplemental oxygen. Neck is supple. Skin is warm and moist. I do not see any rashes about the head or neck or face. Pupils react equally to light from 5 down to about 3 mm. His corneal reflexes are weak, but present symmetrically. Facial grimace is present and symmetric. He has restless movement of his legs when stimulated. He does not respond to voice. Plantar responses are flexor bilaterally today. There is no myoclonus noted. I can see his right fundus and his disc looks normal. IMPRESSION: Impression is that of unimproved encephalopathy of unclear etiology. His spinal fluid profile, fever, and elevated white blood cell count when came in suggest an infectious process. His PCR for herpes simplex virus 1 and 2 were negative, which are quite reliable with few false negatives. I stopped acyclovir because of his climbing creatinine and that is improved today down to 2.26. His C- reactive protein was elevated yesterday at 41.7 and sedimentation rate was elevated at 35. His white count is normal today. I put blood work in yesterday for lyme disease and mycoplasma. I spoke with Dr. Veronica about the possibility of varicella meningoencephalitis. That would be a treatable cause of encephalitis and the spinal fluid was not checked for that. Dr. Veronica is going to call the lab to see if spinal fluid is available to do VZV IgG and IgM antibody testing. We will do simultaneous testing on blood and do an index if it is positive in the spinal fluid. If it does come back positive, we will have to restart acyclovir and have to keep a close eye on renal function. There is also a possibility that he has a central nervous system vasculitis. He does have an elevated sedimentation rate and CRP. Anti- neutrophil antibodies and other autoimmune antibodies are pending. I have put in an order for paraneoplastic antibodies and blood today. I will go ahead and start Solu-Medrol 1000 mg per day. Discussed with Dr. Ribera, our mixed livestock farmer, and he agrees that this is fairly low downside to steroids at this point. Specifically, there does not appear to be a bacterial infection as a cause of his problems and highly unlikely that he has a fungal infection. I will continue to follow him along. My understanding is that Infectious Disease consultation may be available tomorrow. The description of the amber guy also leads me to repeat his EEG today. His initially EEG just showed some generalized slowing from Dr. Awan's prior interpretation. [id number]/[facility] #: [id number] [facility]
--- NOTE | 2018-09-03 22:11 | EEG ---
ELECTROENCEPHALOGRAPHY: DATE OF STUDY: 09/03/18 LOCATION: He is in the ICU bed 8. REFERRING PHYSICIAN: Dr. Matamoros. CLINICAL PROBLEM: Unresponsiveness, possible encephalitis. MEDICATIONS: Include: 1. Precedex. 2. Lorazepam p.r.n. 3. Insulin. 4. Solu-Medrol. 5. Synthroid. 6. Lasix. 7. Vibramycin. 8. Lopressor. 9. Lovenox. REPORT: The 16-channel EEG is remarkable for background rhythms of diffuse low to moderate voltage slow activity. Rhythms are generally symmetrical. The patient is clinically unresponsive and on Precedex. There is fairly abundant, but very low-voltage beta rhythm seen diffusely. There are no focal abnormalities. The patient moves at times with movement artifact and occasionally moves one arm, but there are no clinical events described otherwise. The patient is attempted to be aroused at the end of the recording and apparently does open his eyes briefly, but not visually engage the examiner. He did not follow commands. There is no evidence of sleep stages. There are no focal, lateralized or epileptiform abnormalities. CLINICAL IMPRESSION: Abnormal EEG due to diffuse slowing and disorganization of background rhythms consistent with diffuse cerebral dysfunction. There are no focal or epileptiform features to this recording. [id number]/[facility] #: [id number] [facility]
[2018-09-04] MEDS: Acetaminophen SUPP* 650 MG SUPP PR PRN (01:52)
[2018-09-04] MEDS: Metoprolol Tartrate IV* 1 MG/ML 5 ML VIAL IV SCH ×4 (03:04→19:58)
[2018-09-04] MEDS: DEXMEDETOMIDINE IVPB SCH ×4 (03:22→16:39)
[2018-09-04] MEDS: NS 0.9% IVPB SCH ×4 (03:22→16:39)
[2018-09-04 05:08] LABS: ABS Basophils 0 10^3/ul (0-0.2); ABS Eosinophils 0 10^3/ul (0-0.6); ABS Monocytes 0.1 10^3/ul (0-0.8); ABS Nucleated RBC 0 10^3/ul; Eosinophil % 0.1 %; Hematocrit 53 % (42-52); Hemoglobin 17.4 g/dl (14.0-18.0); Lymphocyte % 13.6 %; Mean Corpuscular HGB Conc 33 g/dl (31-36); Mean Corpuscular Hemoglobin 30 pg (27-31); Mean Corpuscular Volume 90 fL (80-94); Nucleated Red Blood Cells % 0.2; Platelet Count 159 10^3/ul (150-450); Red Blood Count 5.91 10^6/ul (4.00-5.40); Red Cell Distribution Width 15 % (10.5-15); White Blood Count 7.2 10^3/ul (3.5-10.8)
[2018-09-04 05:23] LABS: Albumin 3.9 g/dL (3.2-5.2); Albumin/Globulin Ratio 1.1 (1-3); BUN/Creatinine Ratio 19.3 (8-20); Calcium 9.5 mg/dL (8.6-10.3); EGFR African American 34.2 (>60); EGFR Non-African American 28.3 (>60); Globulin 3.6 g/dL (2-4); Magnesium 1.7 mg/dL (1.9-2.7); Phosphorus 4.9 mg/dL (2.5-5.0); Total Bilirubin 0.7 mg/dL (0.2-1.0); Total Protein 7.5 g/dL (6.4-8.9)
[2018-09-04] MEDS ORDERED: Dextrose 50% Syringe 50 ML* 25 GM/50 ML SYRINGE IV PUSH PRN (05:56)
[2018-09-04] MEDS: Levothyroxine INJ* 100 MCG/5 ML VIAL IV SCH (05:58)
[2018-09-04] MEDS: DOXYcycline IV* 100 MG in NS 0.9% 250 ML* 250 ML IVPB SCH (05:58)
[2018-09-04] MEDS: Insulin LISPRO* 1 UNITS UNIT SUBCUT SCH ×3 (07:06→18:32)
[2018-09-04] MEDS ORDERED: cefTRIAXone(*) 2 GM in NS 0.9% 50 ML* 50 ML IVPB SCH (08:00)
[2018-09-04] MEDS ORDERED: Insulin GLARGINE(*) 1 UNITS UNIT SUBCUT SCH ×2 (09:00→18:03)
[2018-09-04] MEDS: Furosemide IV* 10 MG/ML VIAL (40 MG) IV SCH (09:09)
[2018-09-04] MEDS ORDERED: Magnesium Sulfate IV* 3 GM in NS 0.9% 100 ML* 100 ML IVPB ONE (10:30)
[2018-09-04 11:29] LABS: Urine Appearance Cloudy; Urine Bacteria Absent (Absent); Urine Bilirubin Negative (Negative); Urine Blood 1+ (Negative); Urine Color Yellow; Urine Glucose 3+(>=500 mg/dL) (Negative); Urine Ketones Trace (Negative); Urine Nitrite Negative (Negative); Urine Protein Negative (Negative); Urine Red Blood Cell 1+(3-5/hpf) (Absent); Urine Specific Gravity 1.011 (1.010-1.030); Urine Squamous Epithelial Cell Present (Absent); Urine Urobilinogen Negative (Negative); Urine White Blood Cell 1+(6-10/hpf) (Absent)
[2018-09-04] MEDS: methylPREDNISolone SOD SUCC* 1,000 MG in NS 0.9% 250 ML* 250 ML IVPB SCH (13:20)
--- NOTE | 2018-09-04 13:42 | CONS ---
CONSULTATION REPORT: DATE OF CONSULT: 09/04/18 REQUESTING PHYSICIAN: Dr. Veronica. CONSULTING SERVICE: Infectious Disease. REASON FOR CONSULT: Encephalitis. IMPRESSION: 1. Decrease in mental status with initial left-sided weakness. Negative brain imaging. Lumbar puncture showed 15 white cells, lymphocytic predominance, the glucose 150, the protein 53. Differential does include an infectious encephalitis, typically viral. He has had HSV-1 and 2 ruled out by PCR. Varicella is a consideration, though usually self-limited. He had a negative CSF VDRL as far as bacterial causes, however, that is not a completely sensitive test for neurosyphilis. He had a negative HIV test. Other bacterial considerations, I think Lyme less likely, nothing to suggest a primary bacterial meningoencephalitis. With a lymphocytic predominance, an atypical manifestation of enterovirus is a consideration, less likely tuberculosis. 2. Left arm mass. Could be underlying process be paraneoplastic instead of infectious. 3. Coronary artery disease. 4. Type 2 diabetes. RECOMMENDATIONS: Agree with discontinuing acyclovir. He had a varicella PCR pending. I will add a syphilis IgG to the blood. Stop the ceftriaxone and doxycycline. He is on empiric corticosteroids for possibility of noninfectious inflammatory process and has had paraneoplastic and autoimmune testing sent. We will also add enterovirus PCR. HISTORY OF PRESENT ILLNESS: This is a 73-year-old man admitted with change in mental status. He cannot provide any details as he is still not back to his baseline. History was obtained instead from review of the medical record and discussion with Dr. Clarke, Dr. Awan, and Dr. Veronica. He apparently lives with his grandson who had noticed him to be not acting himself, less interactive , sleeping more over the 2 to 3 days before he came to the hospital. He is unsure about any fevers, chills, or other systemic symptoms, but eventually he started to have left-sided weakness and significant decline in mental status, so was brought by ER to the hospital on 08/29/18. Brain CT, MRI, head and neck MRA unrevealing for stroke or vascular causes. No temporal lobe involvement. He has been febrile off and on since he has been here. He was on acyclovir until the HSV testing came back negative based on the initial CSF pleocytosis. He has had increase in troponin with a slight initial leukocytosis which has since resolved, mild increase in sedimentation rate of 35 and a CRP of 41. Left arm mass imaging showed solid mass corresponding to the abnormality. It is 11 x 6 cm. PAST MEDICAL HISTORY: 1. Hypertension. 2. Coronary artery disease. 3. Type 2 diabetes. 4. Hyperlipidemia. 5. Status post coronary artery bypass, 2002. 6. PCI, 2008. ALLERGIES: No known drug allergies. MEDICATIONS: 1. Tylenol. 2. Albuterol inhaler. 3. Dexmedetomidine infusion. 4. Doxycycline 100 mg IV every 12 hours. 5. Enoxaparin. 6. Insulin glargine. 7. Methylprednisolone 1 g a day. 8. Ceftriaxone 2 g a day. SOCIAL HISTORY: Lives with his grandson. He is a past smoker. FAMILY HISTORY: Unknown. REVIEW OF SYSTEMS: Unobtainable given his mental status. PHYSICAL EXAM: Vital Signs: Temperature 37, heart rate 90, respiratory rate 20 , blood pressure 125/90, oxygen saturation 97% on 5 L by nasal cannula. In general, he is asleep, but awakens his eyes to voice, does not regard, track or follow commands. HEENT: There is no conjunctival hemorrhage. Oropharynx without lesions. Neck is supple without mass. Heart is regular and tachycardic without murmurs. Lungs are clear to auscultation bilaterally. Abdomen: Soft, nontender, nondistended. There are bowel sounds present. Skin : There is no rash or splinter hemorrhage. Musculoskeletal: There is no joint synovitis. There is a large left posterior upper arm mass, which is noninflamed, nontender, slightly mobile, well demarcated. LABORATORY DATA: Sodium 150, creatinine 2.2. Troponin 0.2. White blood cell count 7, hemoglobin 17, platelets 159. Please see impressions and recommendations outlined above. Thanks for asking me to see Mr. Harry in consultation. [id number]/[facility] #: [id number] LILO
--- NOTE | 2018-09-04 17:42 | PN ---
Date of Service: 09/04/18 Vital Signs: Temp Pulse Resp BP SpO2 FiO2 99.6 F 97 20 124/90 97 09/04/18 16:11 09/04/18 11:01 09/04/18 11:01 09/04/18 11:01 09/04/18 11:01 Physical Exam: Gen: Obtunded, NAD HEENT: Atraumatic, normocephalic, nasal trumpet to right nares Lungs: Clear bilaterally at apices, no wheezing, bases diminished Cardiac: RSR on telemetry, rate and rhythm regular, S1S2 present Abdomen: Obese, hoe-[id number]-mii-distended, +BSx4 q Extremities: trace bilateral LE edema, +2 pulses, no clubbing, no cyanosis Neuro: Obtunded, does not track, on Precedex Fluid Balance (Past 24 Hours): I= O= Net Intake & Output 09/02/18 09/03/18 09/04/18 09/05/18 06:59 06:59 06:59 06:59 Intake Total 2780 3348 1830 Output Total 4055 2980 5565 675 Balance -1275 368 -3735 -675 Weight 337 lb 4.916 oz 326 lb 11.601 oz 317 lb 3.923 oz Intake: IV Fluids 2007 1982 714 D5W 1775 150 D5W 1/2 NS 1034 208 NS (0.9%) 974 91 ivm 473 IVPB 250 5 309 ABX - DOXYCYCLINE 5 309 ANTIVIRAL - ACYCLOVIR 250 Medicated IV 522 1360 807 CC - Dexmedetomidine/ 522 1360 807 Precedex Oral 0 0 0 Output: Urine 375 240 [place] 3680 2980 5325 675 Other: Estimated Stool Amount Small Small Small Labs: Laboratory Results - last 24 hr 09/03/18 09/03/18 09/03/18 17:26 21:10 23:39 WBC RBC Hgb Hct MCV MCH MCHC RDW Plt Count MPV Neut % (Auto) Lymph % (Auto) [place] % (Auto) Eos % (Auto) Baso % (Auto) Absolute Neuts (auto) Absolute Lymphs (auto) Absolute Monos (auto) Absolute Eos (auto) Absolute Basos (auto) Absolute Nucleated RBC Nucleated RBC % Sodium Potassium Chloride Carbon Dioxide Anion Gap BUN Creatinine Est GFR ( Amer) Est GFR (Non-Af Amer) BUN/Creatinine Ratio Glucose POC Glucose (mg/dL) 287 H 347 H Calcium Phosphorus Magnesium Total Bilirubin AST ALT Alkaline Phosphatase Troponin I 0.33 H* Total Protein Albumin Globulin Albumin/Globulin Ratio Urine Color Urine Appearance Urine pH Ur Specific [place] Urine Protein Urine Ketones Urine Blood Urine Nitrate Urine Bilirubin Urine Urobilinogen Ur Leukocyte Esterase Urine WBC (Auto) Urine RBC (Auto) Ur Squamous Epith Cells Urine Bacteria Urine Glucose 09/04/18 09/04/18 09/04/18 01:50 05:00 05:00 WBC 7.2 RBC 5.91 H Hgb 17.4 Hct 53 H MCV 90 MCH 30 MCHC 33 RDW 15 Plt Count 159 MPV 9.0 Neut % (Auto) 84.2 Lymph % (Auto) 13.6 [place] % (Auto) 1.9 Eos % (Auto) 0.1 Baso % (Auto) 0.2 Absolute Neuts (auto) 6.0 Absolute Lymphs (auto) 1.0 Absolute Monos (auto) 0.1 Absolute Eos (auto) 0 Absolute Basos (auto) 0 Absolute Nucleated RBC 0 Nucleated RBC % 0.2 Sodium 150 H Potassium 4.0 Chloride 113 H Carbon Dioxide 22 Anion Gap 15 H BUN 44 H Creatinine 2.28 H Est GFR ( Amer) 34.2 Est GFR (Non-Af Amer) 28.3 BUN/Creatinine Ratio 19.3 Glucose 414 H POC Glucose (mg/dL) Calcium 9.5 Phosphorus 4.9 Magnesium 1.7 L Total Bilirubin 0.70 AST 17 ALT 17 Alkaline Phosphatase 65 Troponin I 0.32 H* Total Protein 7.5 Albumin 3.9 Globulin 3.6 Albumin/Globulin Ratio 1.1 Urine Color Urine Appearance Urine pH Ur Specific [place] Urine Protein Urine Ketones Urine Blood Urine Nitrate Urine Bilirubin Urine Urobilinogen Ur Leukocyte Esterase Urine WBC (Auto) Urine RBC (Auto) Ur Squamous Epith Cells Urine Bacteria Urine Glucose 09/04/18 09/04/18 09/04/18 07:53 11:10 12:51 WBC RBC Hgb Hct MCV MCH MCHC RDW Plt Count MPV Neut % (Auto) Lymph % (Auto) [place] % (Auto) Eos % (Auto) Baso % (Auto) Absolute Neuts (auto) Absolute Lymphs (auto) Absolute Monos (auto) Absolute Eos (auto) Absolute Basos (auto) Absolute Nucleated RBC Nucleated RBC % Sodium Potassium Chloride Carbon Dioxide Anion Gap BUN Creatinine Est GFR ( Amer) Est GFR (Non-Af Amer) BUN/Creatinine Ratio Glucose POC Glucose (mg/dL) 334 H Calcium Phosphorus Magnesium Total Bilirubin AST ALT Alkaline Phosphatase Troponin I 0.22 H* Total Protein Albumin Globulin Albumin/Globulin Ratio Urine Color Yellow Urine Appearance Cloudy Urine pH 5.0 Ur Specific [place] 1.011 Urine Protein Negative Urine Ketones Trace A Urine Blood 1+ A Urine Nitrate Negative Urine Bilirubin Negative Urine Urobilinogen Negative Ur Leukocyte Esterase Negative Urine WBC (Auto) 1+(6-10/hpf) A Urine RBC (Auto) 1+(3-5/hpf) A Ur Squamous Epith Cells Present A Urine Bacteria Absent Urine Glucose 3+(>=500 mg/dl) A Studies: Patient Name: J[facility]RELL BE [facility] Medical Record#: [id number] Ordering Physician: Onur Veronica MD Acct.#: [id number] : 1945 Age: 73 Sex: M Location: [facility] Exam Date: 09/03/18 0948 ADM Status: ADM IN Order Information: CHEST AP OR PORT Accession Number: [id number] CPT: 50183 INDICATION: Hypoxia and increased work of breathing COMPARISON: Most recent comparison chest x-ray is dated September 01, 2018 TECHNIQUE: Single AP portable view of the chest was obtained. FINDINGS: Image quality is compromised due to the relative inferiority of a portable chest x-ray. Stable postsurgical changes include sternotomy wires and surgical clips overlying the mediastinum. There is a moderate degree of cardiomegaly similar in appearance to the previous chest x-ray. The vasculature appears mildly engorged and indistinct. The diaphragm and costophrenic angles are adequately defined. Visualized bones are normal for the patient's age. IMPRESSION: Chest x-ray findings are consistent with cardiogenic pulmonary edema similar in appearance to the most recent chest x-ray dated September 01, 2018. Patient Name: JARRELL BE III Medical Record#: [id number] Ordering Physician: Margaret Clarke DO Acct.#: [id number] : 1945 Age: 73 Sex: M Location: [facility] Exam Date: 08/31/18 0722 ADM Status: ADM IN Order Information: US RENAL COMPLETE Accession Number: [id number] CPT: 37556 HISTORY: renal failure COMPARISONS: None TECHNIQUE: Multiple transverse and longitudinal ultrasound images were obtained of the kidneys using grayscale and color Doppler imaging. FINDINGS: RIGHT KIDNEY: The right kidney is normal in shape, size, contour, and echogenicity. There is no hydronephrosis or nephrolithiasis. The right kidney measures 14.9 x 7.3 x 6.4 cm. LEFT KIDNEY: The left kidney is normal in shape, size, contour, and echogenicity. There is no hydronephrosis or nephrolithiasis. The left kidney measures 14.4 x 6.8 x 6.6 cm. BLADDER: No images are submitted of the bladder. AORTA AND IVC: No images are submitted of the vasculature. RETROPERITONEUM: Unremarkable. OTHER: The liver is echogenic. IMPRESSION: NO HYDRONEPHROSIS OR NEPHROLITHIASIS. FATTY LIVER Nutrition: NPO Impression: This is a 73 year old male that presented with AMS of unclear etiology, being ruled out for viral vs autoimmune vs paraneoplastic syndrome. Plan: Plan: 1. Altered Mental Status - Etiology viral encephalitis vs paraneoplastic, vs autoimmune; less likely bacterial given negative workup thus far - Continue precedex for comfort and fentanyl - ID and neuro following, appreciate recommendations from all disciplines - Atbx discontinued, continue steroids 1 gram daily per neuro, follow lab studies per ID and neuro recs - Supportive care, pulmonary toilet - Will need to consider nutrition if mentation does not improve, per record unable to pass NG tube 2. ZULLY - 2/2 ATN - Renal US as above, no hydro or obstruction - Healy draining - Should consult nephrology given rising sodium (150 today) and rising creatinine 3. Acute Pulmonary edema - 2/2 diastolic HF - Initiate lasix IV BID and continue to monitor renal function while diuresing - I&Os, daily weights - Continue healy and monitor output - IVF dc'd 4. HTN - BP stable, continue hydralazine PRN and metoprolol Q6h PRN 5. DM - With hyperglycemia likely 2/2 steroids - Increase long acting to 30 daily and continue lispro SS 6. Hx of CAD - Elevated troponins, but no EKG changes, ECHO with EF of 50-55% and no valvular abnormalities and no wall motion abnormalities - Likely demand in the setting of acute illness - Trops trending down 7. Hypothyroidism - Continue synthroid daily Critical Care Time: 70 minutes.
--- NOTE | 2018-09-04 18:11 | PN ---
Subjective Date of Service: 09/04/18 Interval History: Pt seen and examined. Meds and labs reviewed. ROS: Could not be reliably obtained PHYSICAL EXAM: GEN APPEARANCE: Sedated, eyes open but not interactive not in acute distress, obese HEENT: NC/AT, PERRLA, moist oral mucosa, (-) throat erythema NECK: Soft, supple, (-) cervical LAD, (-)JVD HEART: S1S2 WNL, RRR, No MRG CHEST: CTA, BL, GAE, No W/R/R, tachypnea ABD: Soft, ND/NT, NABS 4x Q EXT: No C/C/E SKIN: Warm to touch PSYCH: No active psychosis, hallucinations, depression, SI/HI Objective Active Medications: Acetaminophen (Tylenol Supp*) 650 mg NV Q6H PRN PRN Reason: Pain/Fever Last Admin: 09/04/18 01:52 Dose: 650 mg Albuterol/Ipratropium (Duoneb (Albuterol 2.5 Mg/Ipratropium 0.5 Mg)) 1 neb INH Q4H PRN PRN Reason: SOB/WHEEZING Dextrose (D50w Syringe 50 Ml*) 12.5 gm IV PUSH .FOR FS < 60 - SS PRN PRN Reason: FS < 60 Enoxaparin Sodium (Lovenox(*)) 30 mg SUBCUT Q24H RIOS Last Admin: 09/03/18 17:31 Dose: 30 mg Fentanyl Citrate (Fentanyl*) 50 mcg IV SLOW PU Q4H PRN PRN Reason: Agitation Last Admin: 09/03/18 18:33 Dose: 50 mcg Furosemide (Lasix Iv*) 40 mg IV BID RIOS Hydralazine HCl (Apresoline Iv*) 10 mg IV SLOW PU Q6H PRN PRN Reason: Systolic Bp Greater Than:190 Last Admin: 09/03/18 16:16 Dose: 10 mg Methylprednisolone Sodium Succinate 1,000 mg/ Sodium Chloride 250 mls @ 250 mls /hr IVPB Q24H RIOS Last Admin: 09/04/18 13:20 Dose: 250 mls/hr Dexmedetomidine HCl 800 mcg/ (Sodium Chloride) 200 mls @ 28.9 mls/hr IVPB Q7H [facility]; Protocol Last Admin: 09/04/18 14:54 Dose: 28.9 mls/hr Insulin Glargine (Lantus(*)) 30 units SUBCUT Q24H [facility] Insulin Human Lispro (Humalog*) 0 units SUBCUT Q6H [facility]; Protocol Last Admin: 09/04/18 12:55 Dose: 12 units Levothyroxine Sodium (Synthroid Inj*) 37.5 mcg IV 0600 [facility] Last Admin: 09/04/18 05:58 Dose: 37.5 mcg Lorazepam (Ativan Inj*) 2 mg IV PUSH Q4H PRN PRN Reason: ANXIETY Last Admin: 09/02/18 16:36 Dose: 2 mg Metoprolol Tartrate (Lopressor Iv*) 5 mg IV Q6H [facility] Last Admin: 09/04/18 14:54 Dose: 5 mg Vital Signs - 8 hr 09/04/18 09/04/18 09/04/18 10:30 11:00 11:01 Temperature Pulse Rate 90 92 97 Respiratory 20 20 20 Rate Blood Pressure 138/83 124/90 (mmHg) O2 Sat by Pulse 98 98 97 Oximetry 09/04/18 09/04/18 09/04/18 11:30 12:00 12:14 Temperature 98.6 F Pulse Rate 100 90 Respiratory 20 18 Rate Blood Pressure 126/80 114/73 (mmHg) O2 Sat by Pulse 98 98 Oximetry 09/04/18 09/04/18 09/04/18 12:30 13:00 13:30 Temperature Pulse Rate 90 98 90 Respiratory 21 19 18 Rate Blood Pressure 119/74 122/81 110/70 (mmHg) O2 Sat by Pulse 97 97 98 Oximetry 09/04/18 09/04/18 09/04/18 14:00 14:30 15:00 Temperature Pulse Rate 92 90 Respiratory 15 19 17 Rate Blood Pressure 112/87 121/80 (mmHg) O2 Sat by Pulse 98 98 Oximetry 09/04/18 09/04/18 09/04/18 15:01 15:30 16:00 Temperature Pulse Rate 81 92 87 Respiratory 17 18 18 Rate Blood Pressure 111/68 102/77 121/65 (mmHg) O2 Sat by Pulse 96 97 97 Oximetry 09/04/18 09/04/18 09/04/18 16:11 16:30 17:00 Temperature 99.6 F Pulse Rate 99 101 Respiratory 18 19 Rate Blood Pressure 122/78 116/70 (mmHg) O2 Sat by Pulse 97 97 Oximetry 09/04/18 09/04/18 17:30 18:00 Temperature Pulse Rate 103 Respiratory 18 19 Rate Blood Pressure 109/74 (mmHg) O2 Sat by Pulse 96 Oximetry Oxygen Devices in Use Now: OxyMask Result Diagrams: 09/04/18 05:00 09/04/18 05:00 Microbiology and Other Data: Microbiology 08/29/18 17:40 CSF Gram Stain (Tube 3) - Final Cerebral Spinal Fluid 08/29/18 19:50 Nasal Screen MRSA (PCR) - Final Nasal Mrsa Not Detected Assess/Plan/Problems-Billing Mr Harry is a 73 yo M who has a h/o DM, HTN, morbid obesity and CAD who presented to the ER after he was noted to fall a couple times but was also aphasic and subsequently found to be weak on the left. - Patient Problems (1) Fever Current Visit: Yes Status: Acute Code(s): R50.9 - FEVER, UNSPECIFIED SNOMED Code(s): 727536929 Comment: -Repeated Blood cultures and U/Aappears to have pyuria but not clean catch; Dr. Lin D/Cd Rocephin due to unlikely bacterial cause of MS change; left message and will defer with Dr. Lin -Awaiting CXR results -Sent for Blood Cx and will defer w/hospitalist colleage to follow in AM (2) Elevated troponin Current Visit: Yes Status: Acute Code(s): R74.8 - ABNORMAL LEVELS OF OTHER SERUM ENZYMES SNOMED Code(s): 388766412 Comment: #Elevated troponins: -Likely due to demand in the setting of ARF likely due to ATN -Improving (3) Pulmonary edema Current Visit: Yes Status: Acute Code(s): J81.1 - CHRONIC PULMONARY EDEMA SNOMED Code(s): 70567178 Comment: -Likely iatrogenic -No hx of CHF but hx of CAD -Will trend troponin -Likely diastolic CHF given preserved EF on most recent echo -Placed pt on Lasix IV BID and D/Cd IVF (4) Altered mental status Current Visit: Yes Status: Acute Code(s): R41.82 - ALTERED MENTAL STATUS, UNSPECIFIED SNOMED Code(s): 825699702 Comment: -Apprecieate Dr. 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 vasculitic process per Dr. Matamoros and was placed on Solumedrol---will defer (5) Aphasia Current Visit: Yes Status: Acute Code(s): R47.01 - APHASIA SNOMED Code(s) : 53027029 Comment: Will monitor mental status/aphasia, wean precedex some to see if pt is improved at all. (6) ARF (acute renal failure) Current Visit: Yes Status: Acute Comment: -Likely due to ATN given FENa= 4.74% and FE-Urea =51.86% -Slightly improved -Continue watchful waiting (7) HTN (hypertension) Current Visit: Yes Status: Acute Code(s): I10 - ESSENTIAL (PRIMARY) HYPERTENSION SNOMED Code(s): 00400356 Comment: BP improved on precedex drip and scheduled IV metoprolol. Continue to monitor BP. (8) Type II diabetes mellitus Current Visit: Yes Status: Acute Comment: -Appreciate investigative agent adjustment and will await -Continue to monitor (9) CAD (coronary artery disease) Current Visit: Yes Status: Acute Code(s): I25.10 - ATHSCL HEART DISEASE OF [place]' CORONARY ARTERY W/O ANG PCTRS SNOMED Code(s): 15154637 Comment: No signs of ACS. Continue metoprolol. If pt remains unable to eat/ drink will need to reconsider placing NG tube (was tried earlier in the admission but was unable to be placed). (10) DVT prophylaxis Current Visit: Yes Status: Acute Code(s): LCZ6595 - SNOMED Code(s): 130903622 Comment: lovenox Status and Disposition: -As above -Awaiting Dr. Smart input regarding fever given U/A shows pyuria but admittedly not clean catch; also awaiting on repeat CXR
[2018-09-04] MEDS: Enoxaparin(*) 30 MG/0.3 ML SYR SUBCUT SCH (18:31)
[2018-09-04] MEDS ORDERED: D5W 1000 ML BAG* 1,000 ML IV SCH (19:00)
--- NOTE | 2018-09-04 19:43 | PN ---
Subjective Date of Service: 09/04/18 Length of Stay: 6 Days Neurology is following Mr. Harry for the evaluation and management of encephalitis. Interval History: Mr. Harry is a 73-year-old man who has history of hypertension, dyslipidemia, obesity, DMII, and CARD s/p CABG. He presented with aphasia on 08/29/2018. He was evaluated by Dr. Awan. The symptoms began acutely over the past 2-3 days. He had a gradual onset of word finding difficulty. He was admitted for evaluation of stroke. But other differential diagnosis such as herpes encephalitis was also considered. He was admitted for further evaluation. An EEG that's done on 08/30 showed moderate encephalopathy but an EEG completed on September 03, showed severe encephalopathy. He had an MRI of the brain that showed moderate sinus mucosal inflammatory disease with an air-fluid level in the right maxillary sinus. 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 He was evaluated by Dr. Lin. S: The patient is resting comfortable in no distress. He is snoring loudly. He does not respond to the examiner. Reviewed the patient's MRI brain and EEG studies. Review of Systems: Patient does not respond to command. Objective Active Medications: Acetaminophen (Tylenol Supp*) 650 mg GA Q6H PRN PRN Reason: Pain/Fever Last Admin: 09/04/18 01:52 Dose: 650 mg Albuterol/Ipratropium (Duoneb (Albuterol 2.5 Mg/Ipratropium 0.5 Mg)) 1 neb INH Q4H PRN PRN Reason: SOB/WHEEZING Dextrose (D50w Syringe 50 Ml*) 12.5 gm IV PUSH .FOR FS < 60 - SS PRN PRN Reason: FS < 60 Enoxaparin Sodium (Lovenox(*)) 30 mg SUBCUT Q24H RIOS Last Admin: 09/04/18 18:31 Dose: 30 mg Fentanyl Citrate (Fentanyl*) 50 mcg IV SLOW PU Q4H PRN PRN Reason: Agitation Last Admin: 09/03/18 18:33 Dose: 50 mcg Furosemide (Lasix Iv*) 40 mg IV DAILY RIOS Hydralazine HCl (Apresoline Iv*) 10 mg IV SLOW PU Q6H PRN PRN Reason: Systolic Bp Greater Than:190 Last Admin: 09/03/18 16:16 Dose: 10 mg Methylprednisolone Sodium Succinate 1,000 mg/ Sodium Chloride 250 mls @ 250 mls /hr IVPB Q24H [facility] Last Admin: 09/04/18 13:20 Dose: 250 mls/hr Dexmedetomidine HCl 800 mcg/ (Sodium Chloride) 200 mls @ 28.9 mls/hr IVPB Q7H [facility]; Protocol Last Admin: 09/04/18 14:54 Dose: 28.9 mls/hr Dextrose (D5w 1000 Ml Bag*) 1,000 mls @ 50 mls/hr IV PER RATE RIOS Stop: 09/05/18 14:59 Insulin Glargine (Lantus(*)) 30 units SUBCUT Q24H [facility] Last Admin: 09/04/18 18:31 Dose: 30 units Insulin Human Lispro (Humalog*) 0 units SUBCUT Q6H [facility]; Protocol Last Admin: 09/04/18 18:32 Dose: 12 units Levothyroxine Sodium (Synthroid Inj*) 37.5 mcg IV 0600 [facility] Last Admin: 09/04/18 05:58 Dose: 37.5 mcg Lorazepam (Ativan Inj*) 2 mg IV PUSH Q4H PRN PRN Reason: ANXIETY Last Admin: 09/02/18 16:36 Dose: 2 mg Metoprolol Tartrate (Lopressor Iv*) 5 mg IV Q6H [facility] Last Admin: 09/04/18 14:54 Dose: 5 mg Vital Signs 09/04/18 09/04/18 09/04/18 16:30 17:00 17:30 Temperature Pulse Rate 99 101 103 Respiratory 18 19 18 Rate Blood Pressure 122/78 116/70 109/74 (mmHg) O2 Sat by Pulse 97 97 96 Oximetry 09/04/18 18:00 Temperature Pulse Rate 102 Respiratory 19 Rate Blood Pressure 108/70 (mmHg) O2 Sat by Pulse 96 Oximetry Intake and Output Last 24 Hours 09/02/18 09/03/18 09/04/18 09/05/18 06:59 06:59 06:59 06:59 Intake Total 2780 3348 1830 1118 Output Total 4055 2980 5565 1070 Balance -5661 112 -8960 48 Weight 337 lb 4.916 oz 326 lb 11.601 oz 317 lb 3.923 oz Intake: IV Fluids 2007 1982 714 36 D5W 1775 150 D5W 1/2 NS 1034 208 NS (0.9%) 974 91 36 ivm 473 IVPB 250 5 309 687 ABX - CEFTRIAXONE 65 ABX - DOXYCYCLINE 5 309 250 ANTIVIRAL - ACYCLOVIR 250 Magnesium 112 PB - METHYLPREDNISOLONE 260 Medicated IV 522 1360 807 395 CC - Dexmedetomidine/ 522 1360 807 395 Precedex Oral 0 0 0 Output: Urine 375 240 [place] 3680 2980 5325 1070 Other: Estimated Stool Amount Small Small Small Oxygen Devices in Use Now: OxyMask Neurology Exam: General: Ill appearing obese man who is unresponsive. Neck: supple with no evidence of rigidity. He groans and moans but does not appropriately respond. There is a large left upper arm mass, noninflamed, mobile. Neurological Findings: Awake but non-verbal. He has a non-breather mask on. He becomes slightly drowsy after a few minutes of alertness. He does not track examiner. PERRL, EOM-I, no facial asymmetry. He moves all extremities spontaneously but does not follow command. He withdrew to distal noxious stimuli. Result Diagrams: 09/04/18 05:00 09/04/18 05:00 Microbiology and Other Data: Assessment/Plan 1. Acute encephalitis of presumably viral etiology- The opening pressure was not obtained, or at least, cannot be found in the medical chart. If his mentation does not improve, I would like to proceed with a repeat LP (can be done at bedside) to check opening pressure, and if elevated , reduce the pressure. The second EEG definitely changed from the first study, suggesting either sedation, increase ICP pressure, or deeper encephalopathy from concurrent infection or metabolic disturbance. I also recommend repeating an EEG tomorrow if he continues to be encephalopathic to increase the sensitivity for picking up any possible non-convulsive status epilepticus. Of note, the patient does have evidence of acute sinus disease on MRI but without any evidence of [employer] invasive disease- keeping in mind he can be immunosuppressed from diabetes. I prefer to hold off on high dose Solu-medrol since the etiology of his encephalitis is unknown, and his glucose is significantly elevated now with therapy. Continue close monitoring, supportive care, and neuro checks every one hour. Trial BiPAP at night given his snoring and body habitus. I will continue to follow.
[2018-09-04] MEDS ORDERED: Furosemide IV* 10 MG/ML VIAL (40 MG) IV SCH (21:00)
[2018-09-05] MEDS: DEXMEDETOMIDINE IVPB SCH ×4 (03:03→11:51)
[2018-09-05] MEDS: Insulin LISPRO* 1 UNITS UNIT SUBCUT SCH (03:03)
[2018-09-05] MEDS: NS 0.9% IVPB SCH ×4 (03:03→11:51)
[2018-09-05] MEDS: Metoprolol Tartrate IV* 1 MG/ML 5 ML VIAL IV SCH ×2 (03:05→11:42)
[2018-09-05 04:38] LABS: ABS Basophils 0 10^3/ul (0-0.2); ABS Eosinophils 0 10^3/ul (0-0.6); ABS Lymphocytes 1.5 10^3/ul (1.0-4.8); ABS Monocytes 0.6 10^3/ul (0-0.8); ABS Nucleated RBC 0.1 10^3/ul; Eosinophil % 0 %; Hematocrit 53 % (42-52); Hemoglobin 17.1 g/dl (14.0-18.0); Lymphocyte % 9.9 %; Mean Corpuscular HGB Conc 32 g/dl (31-36); Mean Corpuscular Hemoglobin 29 pg (27-31); Mean Corpuscular Volume 92 fL (80-94); Mean Platelet Volume 9.2 fL (7.4-10.4); Nucleated Red Blood Cells % 0.3; Platelet Count 176 10^3/ul (150-450); Red Cell Distribution Width 15 % (10.5-15); White Blood Count 15.1 10^3/ul (3.5-10.8)
--- NOTE | 2018-09-05 04:47 | PN ---
Progress Note - Progress Note Date of Service: 09/05/18 Note: Large tissue products was pulled from patient's oropharnyx. Will send for culture and pathology review.
[2018-09-05] MEDS ORDERED: NS 0.9% 1000 ML** 1,000 ML IV ONE ×2 (04:50→11:00)
[2018-09-05 04:55] LABS: Albumin 3.8 g/dL (3.2-5.2); Albumin/Globulin Ratio 1.1 (1-3); BUN/Creatinine Ratio 20.7 (8-20); Calcium 9.7 mg/dL (8.6-10.3); EGFR African American 20.7 (>60); EGFR Non-African American 17.1 (>60); Globulin 3.5 g/dL (2-4); Magnesium 2.4 mg/dL (1.9-2.7); Potassium 4.1 mmol/L (3.5-5.0); Total Bilirubin 0.8 mg/dL (0.2-1.0); Total Protein 7.3 g/dL (6.4-8.9)
[2018-09-05] MEDS: Levothyroxine INJ* 100 MCG/5 ML VIAL IV SCH (05:47)
[2018-09-05] MEDS ORDERED: Insulin IVPB 100 units/100 ml 100 UNITS/100 ML UNIT IVPB SCH (06:00)
[2018-09-05] MEDS ORDERED: Heparin VIAL(*) 5000 UNITS/ML VIAL (FIVE THOUSAND) SUBCUT SCH (06:00)
[2018-09-05] MEDS ORDERED: NS 0.45% 1000 ML BAG* 1,000 ML IV SCH ×2 (06:00)
[2018-09-05] MEDS ORDERED: Furosemide IV* 10 MG/ML VIAL (40 MG) IV SCH (09:00)
[2018-09-05] MEDS ORDERED: Lidocaine 1% INJ* 10 MG/ML 30 ML SDV ONE (09:22)
[2018-09-05] MEDS ORDERED: Norepinephrine 16MCG/ML IVPRE* 4,000 MCG/250 ML BAG IV ONE (13:41)
[2018-09-05] MEDS ORDERED: Succinylcholine* 20 MG/ML 10 ML VIAL ONE (13:42)
[2018-09-05 13:50] LABS: BUN/Creatinine Ratio 18.5 (8-20); Calcium 9.1 mg/dL (8.6-10.3); EGFR Non-African American 12.4 (>60); Potassium 3.5 mmol/L (3.5-5.0)
[2018-09-05] MEDS ORDERED: EPINEPHrine SYR 0.1MG/ML* SYRINGE ONE (14:08)
--- NOTE | 2018-09-05 14:08 | PN ---
Subjective Date of Service: 09/05/18 Length of Stay: 7 Days Neurology is following Mr. Harry for the evaluation and management recommendation of encephalitis. Interval History: He is more confused and unresponsive to the surrounding environment. He has spontaneous cough. There was a large mucous/clots removed out of the mouth. He does not follow command. He has generalized weakness. LP was done at bedside. Opening pressure was 0-1. No CSF was collected. Labs: Creatinine: 4.65, BUN: 86; Sodium: 157 Review of Systems: Patient does not respond and cannot participate with a ROS. Objective Active Medications: Acetaminophen (Tylenol Supp*) 650 mg [place] Q6H PRN PRN Reason: Pain/Fever Last Admin: 09/04/18 01:52 Dose: 650 mg Albuterol/Ipratropium (Duoneb (Albuterol 2.5 Mg/Ipratropium 0.5 Mg)) 1 neb INH Q4H PRN PRN Reason: SOB/WHEEZING Dextrose (D50w Syringe 50 Ml*) 12.5 gm IV PUSH .FOR FS < 60 - SS PRN PRN Reason: FS < 60 Heparin Sodium (Porcine) (Heparin Vial(*)) 5,000 units SUBCUT Q8HR [facility] Last Admin: 09/05/18 05:47 Dose: 5,000 units Hydralazine HCl (Apresoline Iv*) 10 mg IV SLOW PU Q6H PRN PRN Reason: Systolic Bp Greater Than:190 Last Admin: 09/03/18 16:16 Dose: 10 mg Methylprednisolone Sodium Succinate 1,000 mg/ Sodium Chloride 250 mls @ 250 mls /hr IVPB Q24H [facility] Last Admin: 09/04/18 13:20 Dose: 250 mls/hr Insulin Human Regular (Insulin Regular Iv Drip 1 Unit/Ml) 100 units in 100 mls @ 3 mls/hr IVPB Q24H [facility] Last Admin: 09/05/18 05:40 Dose: 3 mls/hr Levothyroxine Sodium (Synthroid Inj*) 37.5 mcg IV 0600 [facility] Last Admin: 09/05/18 05:47 Dose: 37.5 mcg Metoprolol Tartrate (Lopressor Iv*) 5 mg IV Q6H [facility] Last Admin: 09/05/18 11:42 Dose: 5 mg Vital Signs 09/05/18 09/05/18 09/05/18 11:45 12:00 12:16 Temperature Pulse Rate 99 95 91 Respiratory 23 25 24 Rate Blood Pressure 109/68 124/71 111/63 (mmHg) O2 Sat by Pulse 93 95 95 Oximetry 09/05/18 12:31 Temperature Pulse Rate 85 Respiratory 24 Rate Blood Pressure 109/64 (mmHg) O2 Sat by Pulse 95 Oximetry Intake and Output Last 24 Hours 09/03/18 09/04/18 09/05/18 09/06/18 06:59 06:59 06:59 06:59 Intake Total 3348 1830 2754.6 0 Output Total 2980 5565 1695 140 Balance 368 -3735 1059.6 -140 Weight 326 lb 11.601 oz 317 lb 3.923 oz 311 lb 8.211 oz Intake: IV Fluids 0160 020 6018 D5W 1775 150 D5W 1/2 NS 208 NS (0.45%) 1165 NS (0.9%) 91 36 ivm 473 IVPB 5 309 767 ABX - CEFTRIAXONE 65 ABX - DOXYCYCLINE 5 309 250 Magnesium 112 NS (0.9%) 80 PB - METHYLPREDNISOLONE 260 Medicated IV 1360 807 536.6 CC - Dexmedetomidine/ 1360 807 526 Precedex CC - Insulin 10.6 Oral 0 0 0 0 Tube Feeding Flush Amount 250 Output: Urine 240 [place] 2980 5325 1695 140 Other: Estimated Stool Amount Small Small Oxygen Devices in Use Now: OxyMask Neurology Exam: General: Ill appearing obese man who is unresponsive. Neck: supple with no evidence of rigidity. He groans and moans but does not appropriately respond. There is a large left upper arm non-mobile mass. Neurological Findings: Awake but non-verbal. He has a non-breather mask on. He becomes slightly drowsy after a few minutes of alertness. He does not track examiner. PERRL, EOM-I, no facial asymmetry. Does not move any extremity with reduced tone throughout. He did not withdraw to noxious stimuli today. Reflexes: trace throughout. Mute plantar response. Result Diagrams: 09/05/18 04:30 09/05/18 13:15 Microbiology and Other Data: Assessment/Plan 1. 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 The absence of seizures and epileptiform discharges on EEG is atypical for paraneoplastic encephalitis. The severity of his cognitive decline is atypical for viral encephalitis. The etiology remains unclear but his deterioration over the past 24 hours may in part be related to the current metabolic disturbance. He does not have high ICP pressure since we can barely get any CSF fluid on LP. 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 - Repeat MRI brain without contrast (cannot do with contrast due to risk of nephrogenic systemic fibrosis). - He may need dialysis if kidney function continues to deteriorate - Repeat EEG in the AM - Intubation for airway protection and aspiration prevention is recommended. Discussed with ICU provider. - Pending paraneoplastic and CSF enterovirus results. - Repeat EEG once patient is intubated. - Neuro checks every 1 hour - Continue supportive care - Prognosis is guarded. I discussed the case with the patient's son Aroldo on the phone who agreed with obtaining the above work-up. Aroldo informed me that he would like to give his father a fighting chance even if there is the slightest percentage of improvement. Time spent: 40 minutes of critical care time was spent reviewing the history, examining the patient, discussing the treatment plan with the ICU team and Aroldo.
[2018-09-05] MEDS ORDERED: Lidocaine 2% (CARDIAC)* 20 MG/ML 5 ML SYRINGE (100 MG) ONE (14:09)
[2018-09-05] MEDS ORDERED: Amiodarone IV VIAL* 50 MG/ML 3 ML VIAL (150 MG) ONE (14:09)
[2018-09-05] MEDS ORDERED: Sodium Bicarbonate 8.4%* 50 ML SYRINGE ONE (14:09)
[2018-09-05] MEDS ORDERED: Calcium CHLORIDE 10% SYRINGE* 1 GM/10 ML ONE (14:09)
[2018-09-05] MEDS ORDERED: Amiodarone IV VIAL* 3 ML ONE (14:20)
[2018-09-05] MEDS ORDERED: Sodium Bicarbonate 8.4% IV* 50 ML VIAL ONE (14:27)
[2018-09-05 15:45] VITALS: BP 87/57
--- NOTE | 2018-09-05 17:17 | PN ---
Date of Service: 09/05/18 Critical Care Services: 73 yo M with PMH HTN, CAD, DMII, morbid obesity, HLD admitted for AMS. Patient seen and examined at the bedside Patient is on a face mask, non-responsive to voice or painful stimuli No fever Patient was noted to encephalopathic and in the evening had a bowel movement followed by cardiac arrest. Despite appropriate measures, patient did not have ROSC and as a result Vital Signs: Temp Pulse Resp BP SpO2 FiO2 99.2 F 100 25 87/57 95 09/05/18 11:41 09/05/18 13:31 09/05/18 13:31 09/05/18 13:31 09/05/18 13:31 Physical Exam: Gen: obese man, unresponsive to voice or painful stimuli HEENT:NCAT, neck supple Lungs:air entry bilaterally but shallow breath sounds Cardiac: +S1S2 Abdomen:obese, soft NT Extremities:trace edema Neuro:eyes open, non-verbal, nonfocal Fluid Balance (Past 24 Hours): I= O= Net Intake & Output 09/03/18 09/04/18 09/05/18 09/06/18 06:59 06:59 06:59 06:59 Intake Total 3348 1830 2754.6 0 Output Total 2980 5565 1695 145 Balance 368 -3735 1059.6 -145 Weight 326 lb 11.601 oz 317 lb 3.923 oz 311 lb 8.211 oz Intake: IV Fluids 9004 004 9804 D5W 1775 150 D5W 1/2 NS 208 NS (0.45%) 1165 NS (0.9%) 91 36 ivm 473 IVPB 5 309 767 ABX - CEFTRIAXONE 65 ABX - DOXYCYCLINE 5 309 250 Magnesium 112 NS (0.9%) 80 PB - METHYLPREDNISOLONE 260 Medicated IV 1360 807 536.6 CC - Dexmedetomidine/ 1360 807 526 Precedex CC - Insulin 10.6 Oral 0 0 0 0 Tube Feeding Flush Amount 250 Output: Urine 240 Mclaughlin 2980 5325 1695 145 Other: Estimated Stool Amount Small Small ADLs: Meal Record Start: 08/29/18 17: 28 Freq: Status: Discharge Protocol: Created 08/29/18 17:28 System (Rec: 08/29/18 17:28 System ICU-C25) Document 08/30/18 09:00 [id number] (Rec: 08/30/18 11:48 [id number] ICU-C12) Document 08/30/18 13:00 OJJ8128 (Rec: 08/30/18 15:46 EEB4962 ICU-C12) Document 08/30/18 18:00 BKC5371 (Rec: 08/30/18 19:55 [id number] ICU-C12) Intake and Output Start: 08/29/18 07: 33 Freq: Status: Discharge Protocol: Created 08/29/18 07:33 System (Rec: 08/29/18 07:33 System EDRM-C15) Document 08/29/18 09:30 VEC8388 (Rec: 08/29/18 10:54 PWS2976 ED-C18) Document 08/29/18 16:07 ZQW9708 (Rec: 08/29/18 16:07 PEN2898 ED-C18) Intake and Output Start: 08/29/18 17: 28 Freq: Q1HR Status: Discharge Protocol: Created 08/29/18 17:28 System (Rec: 08/29/18 17:28 System ICU-C25) Document 08/29/18 19:58 FKV2105 (Rec: 08/29/18 19:58 ZUY6687 ICU-M19) Document 08/29/18 21:00 YXA0341 (Rec: 08/29/18 22:16 IFC8272 ICU-C07) Document 08/29/18 22:00 UCE3815 (Rec: 08/29/18 22:16 ORM9320 ICU-C07) Document 08/29/18 23:00 XBG4269 (Rec: 08/29/18 23:44 FGW5226 ICU-M19) Document 08/29/18 23:52 NGN5553 (Rec: 08/29/18 23:57 CCM8332 ICU-M19) Document 08/30/18 01:00 PSR4791 (Rec: 08/30/18 01:15 NDC9221 ICU-C07) Document 08/30/18 02:00 IBN9879 (Rec: 08/30/18 02:02 LDQ2311 ICU-C07) Document 08/30/18 02:55 XTQ2393 (Rec: 08/30/18 02:55 EZO5142 ICU-C07) Document 08/30/18 04:00 RPB0889 (Rec: 08/30/18 04:43 LTL5779 ICU-C07) Document 08/30/18 05:00 RFZ9052 (Rec: 08/30/18 05:02 JXN1421 ICU-C07) Document 08/30/18 05:49 KLQ9512 (Rec: 08/30/18 05:52 FUP2478 ICU-M19) Document 08/30/18 11:00 UIV7156 (Rec: 08/30/18 11:48 PCT8730 ICU-C12) Document 08/30/18 12:00 NUF5383 (Rec: 08/30/18 15:45 KOK2294 ICU-C12) Document 08/30/18 15:00 GVC2645 (Rec: 08/30/18 15:45 UFB7047 ICU-C12) Document 08/30/18 20:00 ZOJ4618 (Rec: 08/30/18 20:32 LPY5286 ICU-C07) Document 08/30/18 21:00 CKU7451 (Rec: 08/30/18 21:35 RRZ7598 ICU-C07) Document 08/30/18 22:00 CKK6862 (Rec: 08/30/18 22:04 OQF5963 ICU-M19) Document 08/30/18 23:00 QIB3695 (Rec: 08/30/18 23:14 UKL4111 ICU-C07) Document 08/30/18 23:39 BUG8698 (Rec: 08/30/18 23:48 DMP1134 ICU-C07) Document 08/31/18 01:00 WNL1536 (Rec: 08/31/18 02:17 URG6736 ICU-C07) Document 08/31/18 02:00 XJG7777 (Rec: 08/31/18 02:18 NDI3806 ICU-C07) Document 08/31/18 03:00 WUS3854 (Rec: 08/31/18 03:55 BNE1038 ICU-C07) Document 08/31/18 03:55 RZS8048 (Rec: 08/31/18 04:06 HRV6480 ICU-C07) Document 08/31/18 05:00 TEO2830 (Rec: 08/31/18 05:17 HLB4862 ICU-C07) Document 08/31/18 06:00 ALX8209 (Rec: 08/31/18 06:49 KYG0742 ICU-M19) Document 08/31/18 07:00 SJU1526 (Rec: 08/31/18 09:01 IMS0103 ICU-M19) Document 08/31/18 08:00 AKQ8703 (Rec: 08/31/18 09:01 RQK6135 ICU-M19) Document 08/31/18 09:00 MCZ6344 (Rec: 08/31/18 09:01 PXG7940 ICU-M19) Document 08/31/18 10:00 RMV7750 (Rec: 08/31/18 12:16 XPZ2987 ICU-M19) Document 08/31/18 12:00 LNY0580 (Rec: 08/31/18 12:16 KJB1361 ICU-M19) Document 08/31/18 13:00 OSI8052 (Rec: 08/31/18 14:26 JVZ8745 ICU-C15) Document 08/31/18 14:00 EBG5927 (Rec: 08/31/18 14:26 XFH4315 ICU-C15) Document 08/31/18 15:00 AYX1812 (Rec: 08/31/18 16:15 GXI7033 ICU-M32) Document 08/31/18 16:00 JUM5029 (Rec: 08/31/18 16:15 JKB0846 ICU-M32) Document 08/31/18 16:38 ASD3494 (Rec: 08/31/18 16:39 VQU1889 ICU-M32) Document 08/31/18 18:00 FGT0144 (Rec: 08/31/18 19:04 BJB5925 ICU-M32) Document 08/31/18 19:00 HNF5952 (Rec: 08/31/18 20:30 NBX4045 ICU-C06) Document 08/31/18 20:00 EXY2975 (Rec: 08/31/18 20:30 AVJ3255 ICU-C06) Document 08/31/18 21:00 ETB8694 (Rec: 08/31/18 22:10 KAK5553 ICU-M19) Document 08/31/18 22:00 DWC6578 (Rec: 08/31/18 22:10 BFO5917 ICU-M19) Document 08/31/18 23:00 NZI9887 (Rec: 09/01/18 00:07 HLC3408 ICU-C06) Document 09/01/18 00:00 ZYH4682 (Rec: 09/01/18 00:07 CED9621 ICU-C06) Document 09/01/18 01:00 RIW5596 (Rec: 09/01/18 02:29 IUA2963 ICU-C06) Document 09/01/18 02:00 SFV9383 (Rec: 09/01/18 02:29 GEJ7654 ICU-C06) Document 09/01/18 03:00 FOS3118 (Rec: 09/01/18 05:47 VHA5495 ICU-C06) Document 09/01/18 04:00 MTV7607 (Rec: 09/01/18 05:47 OJO9803 ICU-C06) Document 09/01/18 05:00 CWV6164 (Rec: 09/01/18 05:47 FXK5721 ICU-C06) Document 09/01/18 06:00 LNL6606 (Rec: 09/01/18 06:36 UQT9312 ICU-M19) Document 09/01/18 07:00 MHH6775 (Rec: 09/01/18 07:16 BQF4106 ICU-C20) Document 09/01/18 08:00 XND0714 (Rec: 09/01/18 08:04 BAQ6171 ICU-M19) Document 09/01/18 09:00 CTT1545 (Rec: 09/01/18 10:06 EYU6710 ICU-M19) Document 09/01/18 10:00 QMO3554 (Rec: 09/01/18 10:07 WSW8547 ICU-M19) Document 09/01/18 11:05 ECB2651 (Rec: 09/01/18 11:05 QXI1406 ICU-M19) Document 09/01/18 12:00 JMG1818 (Rec: 09/01/18 14:59 DOI3765 ICU-C06) Document 09/01/18 13:00 EGB0345 (Rec: 09/01/18 14:59 RTH2857 ICU-C06) Document 09/01/18 14:00 CRY9979 (Rec: 09/01/18 15:00 LUB9637 ICU-C06) Document 09/01/18 15:00 KJE5049 (Rec: 09/01/18 16:21 GSN4218 ICU-C06) Document 09/01/18 16:10 DYH2210 (Rec: 09/01/18 16:40 TTW4519 ICU-C06) Document 09/01/18 17:00 MOO9420 (Rec: 09/01/18 19:22 QIQ5135 ICU-C08) Document 09/01/18 18:00 QIY1077 (Rec: 09/01/18 19:25 PSJ6278 ICU-C08) Document 09/01/18 19:00 FUE3871 (Rec: 09/01/18 20:10 GMZ3793 ICU-M19) Document 09/01/18 20:00 PKW1341 (Rec: 09/01/18 20:10 TWO0908 ICU-M19) Document 09/01/18 21:00 SRN9247 (Rec: 09/01/18 22:11 NNL8244 ICU-C06) Document 09/01/18 22:00 XFI4950 (Rec: 09/01/18 22:20 WKQ6852 ICU-C06) Document 09/01/18 23:00 AMK8474 (Rec: 09/02/18 00:13 BYD6403 ICU-C06) Document 09/02/18 00:00 YYN2109 (Rec: 09/02/18 02:20 FNT8789 ICU-C06) Document 09/02/18 01:00 GNO1790 (Rec: 09/02/18 02:20 QBF3349 ICU-C06) Document 09/02/18 02:00 USI3846 (Rec: 09/02/18 02:20 ZGO6367 ICU-C06) Document 09/02/18 03:00 DZC5731 (Rec: 09/02/18 03:06 PYY8295 ICU-C06) Document 09/02/18 04:00 MZZ9903 (Rec: 09/02/18 06:07 JBK1506 ICU-M19) Document 09/02/18 05:00 IMU1036 (Rec: 09/02/18 06:07 EVM0076 ICU-M19) Document 09/02/18 06:00 BVI2546 (Rec: 09/02/18 06:07 GNA4597 ICU-M19) Document 09/02/18 08:59 ZES5057 (Rec: 09/02/18 08:59 FKN7239 ICU-M19) Document 09/02/18 13:00 KIR4228 (Rec: 09/02/18 13:12 MGB7401 ICU-C12) Document 09/02/18 15:00 HZT6792 (Rec: 09/02/18 15:08 PUA7643 ICU-C12) Document 09/02/18 16:00 RDI4260 (Rec: 09/02/18 16:24 YUL5383 ICU-C07) Document 09/02/18 17:00 BKT7047 (Rec: 09/02/18 18:59 OHW2627 ICU-C07) Document 09/02/18 18:00 GVE8670 (Rec: 09/02/18 19:03 PLI6823 ICU-C07) Document 09/02/18 19:00 YGH3905 (Rec: 09/02/18 19:21 DKI2631 ICU-M19) Document 09/02/18 19:39 MDA8250 (Rec: 09/02/18 19:51 VSW4162 ICU-C06) Document 09/02/18 20:53 WST9130 (Rec: 09/02/18 20:53 OYZ3237 ICU-C06) Document 09/02/18 22:00 TYB6816 (Rec: 09/02/18 22:15 TWG6028 ICU-C06) Document 09/02/18 23:00 VBG3847 (Rec: 09/02/18 23:03 EUA0829 ICU-M19) Document 09/03/18 00:00 PCE8238 (Rec: 09/03/18 00:13 BLU2753 ICU-C06) Document 09/03/18 01:00 BFE3869 (Rec: 09/03/18 01:34 SMP0140 ICU-C06) Document 09/03/18 02:00 TLP4114 (Rec: 09/03/18 03:02 DNK1429 ICU-C06) Document 09/03/18 03:00 ZSG9678 (Rec: 09/03/18 03:02 BSO9899 ICU-C06) Document 09/03/18 04:00 RQQ9109 (Rec: 09/03/18 04:08 IWS8357 ICU-C06) Document 09/03/18 05:00 SAM2214 (Rec: 09/03/18 05:19 IGK2388 ICU-C06) Document 09/03/18 06:00 ZCW3434 (Rec: 09/03/18 06:15 HVE5114 ICU-M19) Document 09/03/18 07:00 QGI5484 (Rec: 09/03/18 08:33 FSL5600 ICU-C06) Document 09/03/18 08:00 NAK3519 (Rec: 09/03/18 08:38 XZB9133 ICU-C06) Document 09/03/18 09:00 WCM5088 (Rec: 09/03/18 10:35 EXJ0417 ICU-C06) Document 09/03/18 10:00 GHD5027 (Rec: 09/03/18 10:37 NLT0124 ICU-C06) Document 09/03/18 11:00 IRE2354 (Rec: 09/03/18 11:04 CTF1457 ICU-C06) Document 09/03/18 12:00 ENY9105 (Rec: 09/03/18 13:05 QCK7900 ICU-C06) Document 09/03/18 13:00 XSJ2940 (Rec: 09/03/18 13:05 JMK6362 ICU-C06) Document 09/03/18 14:00 RJU1844 (Rec: 09/03/18 14:20 USC5869 ICU-C06) Document 09/03/18 15:00 MSD0155 (Rec: 09/03/18 15:25 HHT7250 ICU-C06) Document 09/03/18 15:26 SDT2072 (Rec: 09/03/18 15:32 JBD9509 ICU-C06) Document 09/03/18 17:00 YGJ3539 (Rec: 09/03/18 17:43 GKR8952 ICU-C06) Document 09/03/18 17:44 WZJ0152 (Rec: 09/03/18 17:45 MQK6226 ICU-C06) Document 09/03/18 19:00 WNA5158 (Rec: 09/03/18 20:31 APO9393 ICU-C06) Document 09/03/18 20:00 DMG0731 (Rec: 09/03/18 20:31 YGB2384 ICU-C06) Document 09/03/18 21:00 DDA5988 (Rec: 09/03/18 21:08 PNC2810 ICU-C06) Document 09/03/18 22:00 OLL0678 (Rec: 09/03/18 23:30 INO2902 ICU-C06) Document 09/03/18 23:00 KWJ7602 (Rec: 09/03/18 23:30 CMS7980 ICU-C06) Document 09/03/18 23:43 VSX6592 (Rec: 09/03/18 23:47 YEW5689 ICU-M19) Document 09/04/18 01:00 VHA9711 (Rec: 09/04/18 01:48 KVI9800 ICU-C06) Document 09/04/18 02:00 DGW3439 (Rec: 09/04/18 02:03 WOU9669 ICU-M19) Document 09/04/18 03:00 DOB7311 (Rec: 09/04/18 03:02 IAV7429 ICU-M19) Document 09/04/18 03:54 TWV4695 (Rec: 09/04/18 03:55 FOE3500 ICU-C06) Document 09/04/18 05:00 USE0753 (Rec: 09/04/18 05:30 YEZ8879 ICU-C06) Document 09/04/18 06:00 ZUO3860 (Rec: 09/04/18 06:05 NJB1742 ICU-M19) Document 09/04/18 07:00 OJL1079 (Rec: 09/04/18 08:04 JVP6344 ICU-M19) Document 09/04/18 08:00 NTX9911 (Rec: 09/04/18 08:04 QIR5278 ICU-M19) Document 09/04/18 09:00 QIG2090 (Rec: 09/04/18 11:34 ITA2292 ICU-C06) Document 09/04/18 10:00 ICT0657 (Rec: 09/04/18 11:34 TVU1217 ICU-C06) Document 09/04/18 11:00 FUR9849 (Rec: 09/04/18 11:34 UYW9257 ICU-C06) Document 09/04/18 12:00 VND6695 (Rec: 09/04/18 18:00 RID3739 ICU-M19) Document 09/04/18 13:00 JVO4597 (Rec: 09/04/18 18:00 EKS9409 ICU-M19) Document 09/04/18 14:00 YTP1219 (Rec: 09/04/18 18:00 JWF3488 ICU-M19) Document 09/04/18 15:00 RWY9462 (Rec: 09/04/18 18:00 ERG3220 ICU-M19) Document 09/04/18 16:00 EJO8287 (Rec: 09/04/18 18:00 GJZ4578 ICU-M19) Document 09/04/18 17:00 LZP2306 (Rec: 09/04/18 18:00 AGL9777 ICU-M19) Document 09/04/18 18:00 OTD5597 (Rec: 09/04/18 18:00 RRA6532 ICU-M19) Document 09/04/18 20:00 LFJ6454 (Rec: 09/04/18 20:58 QRK7667 ICU-C12) Document 09/05/18 01:00 CGB0093 (Rec: 09/05/18 02:25 IFM6664 ICU-C12) Document 09/05/18 03:00 DUB9652 (Rec: 09/05/18 03:28 PKF8390 ICU-M19) Document 09/05/18 03:30 IHZ9938 (Rec: 09/05/18 03:34 IXI8849 ICU-M19) Document 09/05/18 06:00 GWE6525 (Rec: 09/05/18 06:59 ALQ5190 ICU-C12) Document 09/05/18 07:00 HPE1396 (Rec: 09/05/18 07:00 UKE2677 ICU-C12) Document 09/05/18 07:40 TQR8651 (Rec: 09/05/18 07:43 BOH7237 ICU-C12) Document 09/05/18 11:19 WSM6944 (Rec: 09/05/18 11:19 MNP8136 ICU-M19) Document 09/05/18 12:00 HCV9314 (Rec: 09/05/18 16:52 SGM1953 ICU-C12) Labs: Laboratory Results - last 24 hr 09/02/18 09/02/18 09/04/18 11:01 18:45 18:25 WBC RBC Hgb Hct MCV MCH MCHC RDW Plt Count MPV Neut % (Auto) Lymph % (Auto) Borden % (Auto) Eos % (Auto) Baso % (Auto) Absolute Neuts (auto) Absolute Lymphs (auto) Absolute Monos (auto) Absolute Eos (auto) Absolute Basos (auto) Absolute Nucleated RBC Nucleated RBC % Patient Temperature ABG pH ABG pH (Temp Correct) ABG pCO2 ABG pCO2 (Temp Corrct ABG pO2 ABG pO2 (Temp Correct ABG HCO3 ABG O2 Saturation ABG Base Excess Respiration Rate O2 Delivery Device Ventilator Type Vent Mode FiO2 Inspiratory Time PEEP Pressure Support Pressure Control EPAP IPAP BiPAP Sodium Potassium Chloride Carbon Dioxide Anion Gap BUN Creatinine Est GFR ( Amer) Est GFR (Non-Af Amer) BUN/Creatinine Ratio Glucose POC Glucose (mg/dL) 320 H Glucose Meter Confirm Calcium Phosphorus Magnesium Total Bilirubin AST ALT Alkaline Phosphatase Total Protein Albumin Globulin Albumin/Globulin Ratio Vitamin B12 Lyme Total Antibody Negative CMV Qnt PCR IU/mL Undetected 09/05/18 09/05/18 09/05/18 02:31 03:00 04:30 WBC 15.1 H RBC 5.80 H Hgb 17.1 Hct 53 H MCV 92 MCH 29 MCHC 32 RDW 15 Plt Count 176 MPV 9.2 Neut % (Auto) 86.0 Lymph % (Auto) 9.9 Borden % (Auto) 3.8 Eos % (Auto) 0 Baso % (Auto) 0.3 Absolute Neuts (auto) 13.0 H Absolute Lymphs (auto) 1.5 Absolute Monos (auto) 0.6 Absolute Eos (auto) 0 Absolute Basos (auto) 0 Absolute Nucleated RBC 0.1 Nucleated RBC % 0.3 Patient Temperature ABG pH ABG pH (Temp Correct) ABG pCO2 ABG pCO2 (Temp Corrct ABG pO2 ABG pO2 (Temp Correct ABG HCO3 ABG O2 Saturation ABG Base Excess Respiration Rate O2 Delivery Device Ventilator Type Vent Mode FiO2 Inspiratory Time PEEP Pressure Support Pressure Control EPAP IPAP BiPAP Sodium Potassium Chloride Carbon Dioxide Anion Gap BUN Creatinine Est GFR ( Amer) Est GFR (Non-Af Amer) BUN/Creatinine Ratio Glucose POC Glucose (mg/dL) 442 H* Glucose Meter Confirm 497 H Calcium Phosphorus Magnesium Total Bilirubin AST ALT Alkaline Phosphatase Total Protein Albumin Globulin Albumin/Globulin Ratio Vitamin B12 Lyme Total Antibody CMV Qnt PCR IU/mL 09/05/18 09/05/18 09/05/18 04:30 05:11 05:57 WBC RBC Hgb Hct MCV MCH MCHC RDW Plt Count MPV Neut % (Auto) Lymph % (Auto) Borden % (Auto) Eos % (Auto) Baso % (Auto) Absolute Neuts (auto) Absolute Lymphs (auto) Absolute Monos (auto) Absolute Eos (auto) Absolute Basos (auto) Absolute Nucleated RBC Nucleated RBC % Patient Temperature Not Reportable ABG pH 7.32 L ABG pH (Temp Correct) Not Reportable ABG pCO2 48 H ABG pCO2 (Temp Corrct Not Reportable ABG pO2 112 H ABG pO2 (Temp Correct Not Reportable ABG HCO3 23.5 ABG O2 Saturation 99.2 H ABG Base Excess -1.8 Respiration Rate Not Reportable O2 Delivery Device oxi mask Ventilator Type Not Reportable Vent Mode Not Reportable FiO2 Not Reportable Inspiratory Time Not Reportable PEEP Not Reportable Pressure Support Not Reportable Pressure Control Not Reportable EPAP Not Reportable IPAP Not Reportable BiPAP Not Reportable Sodium 153 H Potassium 4.1 Chloride 115 H Carbon Dioxide 24 Anion Gap 14 H BUN 73 H Creatinine 3.53 H Est GFR ( Amer) 20.7 Est GFR (Non-Af Amer) 17.1 BUN/Creatinine Ratio 20.7 H Glucose 503 H* POC Glucose (mg/dL) > 444 H* Glucose Meter Confirm Calcium 9.7 Phosphorus 5.0 Magnesium 2.4 Total Bilirubin 0.80 AST 19 ALT 21 Alkaline Phosphatase 68 Total Protein 7.3 Albumin 3.8 Globulin 3.5 Albumin/Globulin Ratio 1.1 Vitamin B12 Lyme Total Antibody CMV Qnt PCR IU/mL 09/05/18 09/05/18 09/05/18 06:07 07:05 07:08 WBC RBC Hgb Hct MCV MCH MCHC RDW Plt Count MPV Neut % (Auto) Lymph % (Auto) Borden % (Auto) Eos % (Auto) Baso % (Auto) Absolute Neuts (auto) Absolute Lymphs (auto) Absolute Monos (auto) Absolute Eos (auto) Absolute Basos (auto) Absolute Nucleated RBC Nucleated RBC % Patient Temperature ABG pH ABG pH (Temp Correct) ABG pCO2 ABG pCO2 (Temp Corrct ABG pO2 ABG pO2 (Temp Correct ABG HCO3 ABG O2 Saturation ABG Base Excess Respiration Rate O2 Delivery Device Ventilator Type Vent Mode FiO2 Inspiratory Time PEEP Pressure Support Pressure Control EPAP IPAP BiPAP Sodium Potassium Chloride Carbon Dioxide Anion Gap BUN Creatinine Est GFR ( Amer) Est GFR (Non-Af Amer) BUN/Creatinine Ratio Glucose POC Glucose (mg/dL) 427 H* Glucose Meter Confirm 497 H 483 H Calcium Phosphorus Magnesium Total Bilirubin AST ALT Alkaline Phosphatase Total Protein Albumin Globulin Albumin/Globulin Ratio Vitamin B12 Lyme Total Antibody CMV Qnt PCR IU/mL 09/05/18 09/05/18 09/05/18 07:59 08:02 09:13 WBC RBC Hgb Hct MCV MCH MCHC RDW Plt Count MPV Neut % (Auto) Lymph % (Auto) Borden % (Auto) Eos % (Auto) Baso % (Auto) Absolute Neuts (auto) Absolute Lymphs (auto) Absolute Monos (auto) Absolute Eos (auto) Absolute Basos (auto) Absolute Nucleated RBC Nucleated RBC % Patient Temperature ABG pH ABG pH (Temp Correct) ABG pCO2 ABG pCO2 (Temp Corrct ABG pO2 ABG pO2 (Temp Correct ABG HCO3 ABG O2 Saturation ABG Base Excess Respiration Rate O2 Delivery Device Ventilator Type Vent Mode FiO2 Inspiratory Time PEEP Pressure Support Pressure Control EPAP IPAP BiPAP Sodium Potassium Chloride Carbon Dioxide Anion Gap BUN Creatinine Est GFR ( Amer) Est GFR (Non-Af Amer) BUN/Creatinine Ratio Glucose POC Glucose (mg/dL) 402 H* 402 H* Glucose Meter Confirm 461 H Calcium Phosphorus Magnesium Total Bilirubin AST ALT Alkaline Phosphatase Total Protein Albumin Globulin Albumin/Globulin Ratio Vitamin B12 Lyme Total Antibody CMV Qnt PCR IU/mL 09/05/18 09/05/18 09/05/18 10:07 11:26 11:59 WBC RBC Hgb Hct MCV MCH MCHC RDW Plt Count MPV Neut % (Auto) Lymph % (Auto) Borden % (Auto) Eos % (Auto) Baso % (Auto) Absolute Neuts (auto) Absolute Lymphs (auto) Absolute Monos (auto) Absolute Eos (auto) Absolute Basos (auto) Absolute Nucleated RBC Nucleated RBC % Patient Temperature ABG pH ABG pH (Temp Correct) ABG pCO2 ABG pCO2 (Temp Corrct ABG pO2 ABG pO2 (Temp Correct ABG HCO3 ABG O2 Saturation ABG Base Excess Respiration Rate O2 Delivery Device Ventilator Type Vent Mode FiO2 Inspiratory Time PEEP Pressure Support Pressure Control EPAP IPAP BiPAP Sodium Potassium Chloride Carbon Dioxide Anion Gap BUN Creatinine Est GFR ( Amer) Est GFR (Non-Af Amer) BUN/Creatinine Ratio Glucose POC Glucose (mg/dL) 377 H 372 H 353 H Glucose Meter Confirm Calcium Phosphorus Magnesium Total Bilirubin AST ALT Alkaline Phosphatase Total Protein Albumin Globulin Albumin/Globulin Ratio Vitamin B12 Lyme Total Antibody CMV Qnt PCR IU/mL 09/05/18 13:15 WBC RBC Hgb Hct MCV MCH MCHC RDW Plt Count MPV Neut % (Auto) Lymph % (Auto) Borden % (Auto) Eos % (Auto) Baso % (Auto) Absolute Neuts (auto) Absolute Lymphs (auto) Absolute Monos (auto) Absolute Eos (auto) Absolute Basos (auto) Absolute Nucleated RBC Nucleated RBC % Patient Temperature ABG pH ABG pH (Temp Correct) ABG pCO2 ABG pCO2 (Temp Corrct ABG pO2 ABG pO2 (Temp Correct ABG HCO3 ABG O2 Saturation ABG Base Excess Respiration Rate O2 Delivery Device Ventilator Type Vent Mode FiO2 Inspiratory Time PEEP Pressure Support Pressure Control EPAP IPAP BiPAP Sodium 157 H* Potassium 3.5 Chloride 119 H Carbon Dioxide 23 Anion Gap 15 H BUN 86 H Creatinine 4.65 H Est GFR ( Amer) 15.0 Est GFR (Non-Af Amer) 12.4 BUN/Creatinine Ratio 18.5 Glucose 370 H POC Glucose (mg/dL) Glucose Meter Confirm Calcium 9.1 Phosphorus Magnesium Total Bilirubin AST ALT Alkaline Phosphatase Total Protein Albumin Globulin Albumin/Globulin Ratio Vitamin B12 Cancelled Lyme Total Antibody CMV Qnt PCR IU/mL Impression: - Acute metabolic encephalopathy due to possible encephalitis- viral, paraneoplastic, or autoimmune encephaliti - ZULLY 4.65<--0.97 - Leukocytosis - Hypovolemia - hypernatremia - Hyperglycemia - cardiac arrest Plan: - Acute metabolic encephalopathy due to possible encephalitis- viral, paraneoplastic, or autoimmune encephaliti - ZULLY 4.65<--0.97 - Leukocytosis - Hypovolemia - hypernatremia - Hyperglycemia - cardiac arrest Plan was to continue with current therapy with Solumedrol. After discussion with family and neurology, we were planning to intubate patient and secure his airway before proceeding towards further workup including repeat MRI and IR-LP. Unfortunately, patient suffered a cardiac arrest after a bowel movement. Despite appropriate ACLS measures, there was no ROSC at the end of 25 minutes. On Echocardiogram, there was no cardiac function, no palpable or dopplered pulses. On physical exam there was no spontaneous movement, pupils were dilated and fixed, no spontaneous breath sounds, no cardiac sounds. Patient was pronounced at 14:30 today. Son, Aroldo, was notified upon arrival. He has agreed to autopsy. Critical care spent: 60 minutes
--- NOTE | 2018-09-05 21:33 | PRO ---
LUMBAR PUNCTURE PROCEDURE NOTE: DATE OF PROCEDURE: 09/05/18 - ROOM #ICU-08 PRE-PROCEDURE DIAGNOSIS: Acute encephalitis. POST-PROCEDURE DIAGNOSIS: Acute encephalitis. INDICATION: Diagnostic and therapeutic to assess for elevated intracranial pressure. PROCEDURE IN DETAIL: Consent. This procedure was done at an emergent basis due to the concern that the patient may have elevated ICP pressure. Time-out was performed with the bedside nurse, Rosa Elena, at 9:30 a.m. Under sterile condition, the patient was positioned in the left lateral decubitus position in a semi- position. Chlorhexidine solution and sterile drapes were utilized. A 22-gauge 3.5-inch spine needle was inserted in the space of L2 -L3 interspace. FINDINGS: The 2 cc of spinal fluid was drained after checking the pressure, which was 1 cm H2O. Unable to obtain any CSF fluid due to significantly low CSF pressure. COMPLICATIONS: None. CONDITION: Stable as prior to the surgery. PLAN: We will most likely need to confirm the low CSF pressure by repeating the lumbar puncture by anesthesia under fluoroscopy. [id number]/[facility] #: [id number] LILO
[2018-09-06 09:24] LABS: Enterovirus Source CSF
[2018-09-06 09:28] LABS: Varicella Zoster Result Negative (Negative); Varicella Zoster Source CSF
[2018-09-06 10:04] LABS: EBV Capsid Ag IgG Ab Positive (Negative); EBV Capsid Ag IgM Ab Negative (Negative); Epstein-Barr Nuclear Antigen Positive (Negative)
[2018-09-06 11:07] LABS: Varicella IgG Antibody Index 4.5; Varicella-Zoster IgG Antibody Positive
[2018-09-06 15:21] LABS: Mycoplasma pneumoniae IgG Ab Positive (Negative); Mycoplasma pneumoniae IgM Ab Negative (Negative)
[2018-09-06 21:26] LABS: CSF West Nile Virus IgG Ab Negative (Negative); CSF West Nile Virus IgM Ab Negative (Negative)
[2018-09-07 00:25] LABS: Varicella-Zoster IgM Antibody Negative (Negative)
[2018-09-18 13:33] LABS: Anti-Glial/Neuronal Nuc Ab-1 A Negative titer (<1:240); Anti-Neuronal Nuclear Ab Type1 Negative titer (<1:240); Anti-Neuronal Nuclear Ab Type2 Negative titer (<1:240); Anti-Neuronal Nuclear Ab Type3 Negative titer (<1:240); Anti-Striated Muscle Antibody Negative titer (<1:120); CRMP-5 IgG Antibody Negative titer (<1:240); Purkinje Cell Cytoplasm Typ Tr Negative titer (<1:240); Purkinje Cell Cytoplasm Type 1 Negative titer (<1:240); Purkinje Cell Cytoplasm Type 2 Negative titer (<1:240)
[2018-09-19 14:10] LABS: CMV Rapid PCR Negative (Negative)
== END 2018-09-05 14:30 | disposition expired | DRG 97 ==
LOC: ED 07:23 → ICU 16:17
PROVIDERS: ADMIT Internal Medicine; ATTEND Internal Medicine Pulmonary Disease
PROC: B338ZZZ Magnetic Resonance Imaging (MRI) of Bilateral Internal Carotid Arteries (ICD-10-PCS; 2018-08-29)
PROC: B33GZZZ Magnetic Resonance Imaging (MRI) of Bilateral Vertebral Arteries (ICD-10-PCS; 2018-08-29)
PROC: B33RZZZ Magnetic Resonance Imaging (MRI) of Intracranial Arteries (ICD-10-PCS; 2018-08-29)
PROC: 4A00X4Z Measurement of Central Nervous Electrical Activity, External Approach (ICD-10-PCS; 2018-08-30)
PROC: 009U3ZX Drainage of Spinal Canal, Percutaneous Approach, Diagnostic (ICD-10-PCS; principal; 2018-09-05)
DX: A86 Unspecified viral encephalitis (principal); G04.81 Other encephalitis and encephalomyelitis; G93.41 Metabolic encephalopathy; J81.0 Acute pulmonary edema; Z68.43 Body mass index [BMI] 50.0-59.9, adult; R47.01 Aphasia; N17.9 Acute kidney failure, unspecified; E87.0 Hyperosmolality and hypernatremia; I46.9 Cardiac arrest, cause unspecified; R79.89 Other specified abnormal findings of blood chemistry; I25.10 Atherosclerotic heart disease of native coronary artery without angina pectoris; I10 Essential (primary) hypertension; E78.00 Pure hypercholesterolemia, unspecified; I65.22 Occlusion and stenosis of left carotid artery; E78.5 Hyperlipidemia, unspecified; E66.01 Morbid (severe) obesity due to excess calories; R40.2412 Glasgow coma scale score 13-15, at arrival to emergency department; E03.9 Hypothyroidism, unspecified; R29.703 NIHSS score 3; E11.65 Type 2 diabetes mellitus with hyperglycemia; Z95.1 Presence of aortocoronary bypass graft; Z95.5 Presence of coronary angioplasty implant and graft
CPT/HCPCS: 36415; 36600; 62270; 70450; 70544; 70549; 70553; 71045; 74018; 76775; 80048; 80053; 80307; 80320; 80329; 81003; 81015; 82140; 82550; 82570; 82803; 82945; 82947; 83516; 83519; 83520; 83605; 83735; 84100; 84157; 84300; 84443; 84484; 84540; 85025; 85027; 85610; 85652; 86038; 86140; 86255; 86256; 86592; 86618; 86664; 86665; 86703; 86738; 86787; 86788; 86789; 87040; 87070; 87077; 87086; 87102; 87186; 87205; 87496; 87497; 87498; 87529; 87641; 87798; 87899; 88304; 89051; 93005; 93306; 93308; 95816; 99285; A9270-GY; A9577; C8929; G0480; J0133; J0171; J0282; J0330; J0360; J0696; J1630; J1644; J1650; J1815; J1940; J2060; J2250; J2704; J2930; J3010; J3475; J3490